=== PATIENT | male | born 1950 | race Caucasian/White ===

== ENCOUNTER 2019-09-30 15:21 | Emergency (ER) | payer MEDICARE, SELFPAY ==
[2019-09-30 15:35] VITALS: BP 150/73; PULSE 81; RESP 16; TEMP 36.6; O2SAT 98
--- NOTE | 2019-09-30 15:42 | ED.EAR ---
HPI - Ear Problem General Chief complaint: Ear Stated complaint: left ear pain/ringing Time Seen by Provider: 09/30/19 15:43 Source: patient and RN notes reviewed History of Present Illness HPI Narrative: Patient is a 68-year-old male presents the urgent care with complaints of left ear tinnitus, pain, burning. Patient states that the ringing started today but he has had the pain for approximately 4 to 5 days. Patient denies any drainage or fever. Patient states that he has been under a car and may have gotten some dust in the ear . Patient also reports to picking at the ear and using Q-tips. No other acute complaints. No acute distress noted. Patient had a plan of care. Related Data Home Medications Medication Instructions Recorded Confirmed aspirin 81 mg tablet,delayed 81 mg PO DAILY 07/24/19 09/30/19 release atorvastatin 80 mg tablet 80 mg PO DAILY 07/24/19 09/30/19 cyanocobalamin (vitamin B-12) 1,000 mcg SUBLINGUAL DAILY 07/24/19 09/30/19 1,000 mcg sublingual tablet diclofenac sodium 75 mg 75 mg PO BID PRN 07/24/19 09/30/19 tablet,delayed release enalapril maleate 2.5 mg tablet 2.5 mg PO DAILY 07/24/19 09/30/19 hydrochlorothiazide 25 mg tablet 25 mg PO DAILY 07/24/19 09/30/19 omeprazole 20 mg capsule,delayed 20 mg PO DAILY 07/24/19 09/30/19 release ticagrelor 90 mg tablet 90 mg PO BID tablet 07/24/19 09/30/19 Allergies Allergy/AdvReac Type Severity Reaction Status Date / Time No Known Allergies Allergy Verified 07/24/19 08:33 Review of Systems Review of Systems: Narrative: CONSTITUTIONAL: Denies fever, chills, or sweats. EYES: Denies visual changes, redness, or discharge. ENT: Reports of left otalgia with burning, itchiness, tinnitus CARDIOVASCULAR: Denies chest pain, palpitations, or edema. RESPIRATORY: Denies cough or dyspnea. GASTROINTESTINAL: Denies abdominal pain, nausea, vomiting, or diarrhea. GENITOURINARY: Denies dysuria or hematuria. SKIN: Denies rash or itching. MUSCULOSKELETAL: Denies back pain, joint pain, or myalgia. NEUROLOGIC: Denies headache, numbness, or weakness. All other systems reviewed are negative, except as documented in HPI. [facility] Past Medical History Medical History (Updated 09/30/19 @ 16:03 by BRIDGETT Kellogg) Back pain BPH (benign prostatic hyperplasia) Chronic GERD COPD (chronic obstructive pulmonary disease) Erectile dysfunction H/O carotid atherosclerosis Hyperlipidemia Hypertension Obesity SONAL (obstructive sleep apnea) Tinnitus Type 2 diabetes mellitus Family History Family History (Updated 03/13/18 @ 08:10 by DOCTOR UNKNOWN) Father Diabetes mellitus Hypertension Mother Diabetes mellitus Social History Social History Smoking status: Former smoker Smoking end date: 08/22/05 Alcohol intake: never Comments At the time of my signature, I reviewed and agree with the nursing past medical, surgical, social, and family history. There is no relevant family history pertinent to the patient complaint. Exam Narrative: Exam Narrative: GENERAL: This is a well-nourished, well-developed patient, in no apparent distress. HEAD: normocephalic, atraumatic. EYES: PERRL. Sclera clear/white. Vision is grossly intact. EARS: External ears normal, right auditory canals clear and without drainage, injected and erythemic left TM with mild canal irritation and notable particles. Right TMs normal without perforation. Hearing grossly intact. NOSE: External nose normal with no obvious nasal discharge THROAT: Mucous membranes moist NECK: Neck supple CARDIOVASCULAR: Regular rate and rhythm without murmurs, gallops, or rubs. RESPIRATORY: Clear to auscultation. Breath sounds equal bilaterally. No wheezes, rales, or rhonchi. SKIN: warm, intact with no suspicious lesions or rash, good texture and turgor. NEURO: awake, alert, and oriented to person, place and time. There were no obvious focal neurologic abnormalities. EXTREMITIES: No clubbing, cyanosis, or
== END 2019-09-30 16:08 | disposition home or self-care (01) ==
PROVIDERS: Emergency Provider Nurse Practitioner Family; PCP Internal Medicine
DX: H66.92 Otitis media, unspecified, left ear (principal); I10 Essential (primary) hypertension; E78.5 Hyperlipidemia, unspecified; E11.9 Type 2 diabetes mellitus without complications; Z87.891 Personal history of nicotine dependence
CPT/HCPCS: 99213; G0463

== ENCOUNTER 2020-03-15 14:18 | Emergency (ER) | payer MEDICARE, SELFPAY ==
[2020-03-15 14:34] VITALS: BP 160/65; PULSE 89; RESP 20; TEMP 36.9; O2SAT 100
--- NOTE | 2020-03-15 14:52 | PC.NURSE ---
RIGHT EYE EXAM PER DR SWIFT WITH [employer] LAMP
--- NOTE | 2020-03-15 15:21 | ED.EYEPROB ---
HPI - Eye Problem General Chief complaint: Eye Problems Stated complaint: FB in right eye Source: patient Mode of arrival: ambulatory Limitations: no limitations History of Present Illness HPI Narrative: The patient, who wears glasses, presents with right eye discomfort. Patient states he was working on a car yesterday wearing both eyeglasses and a protective plastic shield ; while grinding he felt foreign body sensation on his right eye that seemed to improve after irrigation/showering. He felt okay when he woke up but after an hour noticed recurrence of symptoms. No significant discharge, significant redness, photophobia, pupil change, epiphora and the FB sensation is right upper outer/temporal. Patient declines hospital referral for higher testing now , after advised there are more available tests[example scanning] there. Related Data Home Medications Medication Instructions Recorded Confirmed aspirin 81 mg tablet,delayed 81 mg PO DAILY 07/24/19 03/15/20 release atorvastatin 80 mg tablet 80 mg PO DAILY 07/24/19 03/15/20 cyanocobalamin (vitamin B-12) 1,000 mcg SUBLINGUAL DAILY 07/24/19 03/15/20 1,000 mcg sublingual tablet enalapril maleate 2.5 mg tablet 2.5 mg PO DAILY 07/24/19 03/15/20 hydrochlorothiazide 25 mg tablet 25 mg PO DAILY 07/24/19 03/15/20 omeprazole 20 mg capsule,delayed 20 mg PO DAILY 07/24/19 03/15/20 release ticagrelor 90 mg tablet 90 mg PO BID tablet 07/24/19 03/15/20 Allergies Allergy/AdvReac Type Severity Reaction Status Date / Time No Known Allergies Allergy Verified 07/24/19 08:33 Review of Systems Review of Systems: Narrative: General/Constitutional: No weight loss,fever Eyes: MILD Redness,discharge Ears/Nose/Throat: No: Epistaxis,ear discharge Respiratory: Denies: Hemoptysis Gastrointestinal: No Vomiting, Bleeding-rectal Skin: No Lumps, eruption Neurologic: No Focal Weakness,Sz Hematologic: Denies: Petechiae/Purpura Psychiatric: No: Suicida ideationl All Other Systems: Reviewed and Negative [facility] Past Medical History Medical History (Updated 03/16/20 @ 00:00 by Background Daemon) Back pain BPH (benign prostatic hyperplasia) Chronic GERD COPD (chronic obstructive pulmonary disease) Erectile dysfunction H/O carotid atherosclerosis Hyperlipidemia Hypertension Obesity SONAL (obstructive sleep apnea) Tinnitus Type 2 diabetes mellitus Family History Family History (Updated 03/13/18 @ 08:10 by DOCTOR UNKNOWN) Father Diabetes mellitus Hypertension Mother Diabetes mellitus Social History Social History Smoking status: Former smoker Smoking end date: 08/22/05 Alcohol intake: never Gender identity (if verbalized by the patient): Male Comments At time of signature, agree with nursing past medical, surgical, social and family history. There is no relevant family history pertinent to the presenting complaint Exam Narrative: Exam Narrative: General Appearance: Well appearing, Well nourished, No distress EYE: PERRLA without asymmetry,[id number] normal, EOMI ,lens normal,, Normal corneas no fluorescein uptake, no Sandra; ant chamber deep, Min Conjunctiva injection, small FB at 10:00 Ears: External ear normal, Auditory canal normal Nose: Normal nose, Nares clear Mouth/Throat: Normal appearing, Normal lips Neck: Supple, No adenopathy Respiratory: Airway patent, No respiratory distress Skin: Warm, Dry Neurological: A&O x3, CN II-X intact Psychiatric: Normal mood, Normal affect Course Course Emergency Course: Patient completely improved , after irrigation removal of foreign body Vital Signs Vital signs: Vital Signs Temperature 98.4 F 03/15/20 14:34 Pulse Rate 89 03/15/20 14:34 Respiratory Rate 20 03/15/20 14:34 Blood Pressure 160/65 H 03/15/20 14:34 Pulse Oximetry 100 03/15/20 14:34 Temperature 98.4 F 03/15/20 14:34 Pulse Rate 89 03/15/20 14:34 Respiratory Rate 20 03/15/20 14:34 Blood Pressure
== END 2020-03-15 15:00 | disposition home or self-care (01) ==
PROVIDERS: Emergency Provider Emergency Medicine; PCP Internal Medicine
DX: T15.01XA Foreign body in cornea, right eye, initial encounter (principal); X58.XXXA Exposure to other specified factors, initial encounter; Z87.891 Personal history of nicotine dependence; N40.0 Benign prostatic hyperplasia without lower urinary tract symptoms; J44.9 Chronic obstructive pulmonary disease, unspecified; E78.5 Hyperlipidemia, unspecified; I10 Essential (primary) hypertension; E11.9 Type 2 diabetes mellitus without complications; G47.33 Obstructive sleep apnea (adult) (pediatric)
CPT/HCPCS: 65220; 99213; G0463

== ENCOUNTER 2020-05-26 10:57 | Emergency (ER) | payer MEDICARE, SELFPAY ==
[2020-05-26 11:00] VITALS: BP 160/84; PULSE 94; RESP 24; TEMP 36.8; O2SAT 98
--- NOTE | 2020-05-26 11:11 | ED.BACK ---
HPI - Back Pain/Injury General Chief Complaint: Back Pain/Injury Stated Complaint: back pain Time Seen by Provider: 05/26/20 11:12 Source: patient Mode of arrival: ambulatory Limitations: no limitations History of Present Illness HPI Narrative: 69-year-old male. Presents to clinic today ambulatory with chief complaints of mid to lower back pain for 2 days. He states that he was buffing his vehicle at home prior to his back pain starting. He reports to have had a lot of bending and twisting . No acute falls or injury. He reports that the pain is worse when he bends or sits for prolonged periods. He states the pain is mildly relieved at home with some Flexeril but he has ran out. No loss of bowel bladder control. No abdominal pain, N/V. Maleurogen concern. Pain is described as sharp shooting. Radiates from mid back down lower back to thigh. He reports a history of chronic back pain. This pain is similar to pain that he has experienced before. MD elicited complaint: back pain Pertinent past history: arthritis Onset (ago): day(s) (2) Timing: intermittent Severity: moderate Pain scale (0-10): 7 Similar Symptoms Previously: Yes Quality: sharp and stabbing Location: lumbar spine and thoracic spine Radiation: buttocks Exacerbating factors: movement Relieving factors: medication (Home Flexeril mildly relieved. ) Context: turning/twisting and bending Associated symptoms: denies other symptoms Treatments prior to arrival: other medications (Flexeril ) Work related injury: No Related Data Home Medications Medication Instructions Recorded Confirmed aspirin 81 mg tablet,delayed 81 mg PO DAILY 07/24/19 05/26/20 release atorvastatin 80 mg tablet 80 mg PO DAILY 07/24/19 05/26/20 cyanocobalamin (vitamin B-12) 1,000 mcg SUBLINGUAL DAILY 07/24/19 05/26/20 1,000 mcg sublingual tablet enalapril maleate 2.5 mg tablet 2.5 mg PO DAILY 07/24/19 05/26/20 hydrochlorothiazide 25 mg tablet 25 mg PO DAILY 07/24/19 05/26/20 ticagrelor 90 mg tablet 90 mg PO BID tablet 07/24/19 05/26/20 [place] Calcium-Vitamin D3 05/26/20 Allergies Allergy/AdvReac Type Severity Reaction Status Date / Time No Known Allergies Allergy Verified 05/26/20 11:05 Review of Systems Review of Systems: Narrative: CONSTITUTIONAL: Denies fever, chills, sweats. EYES: Denies visual changes, redness, discharge. ENT: Denies rhinorrhea, congestion, sore throat, otalgia. CARDIOVASCULAR: Denies chest pain, palpitations, edema. RESPIRATORY: Denies dyspnea, wheezing, cough GASTROINTESTINAL: Denies abdominal pain, nausea, vomiting, diarrhea. GENITOURINARY: Denies dysuria, hematuria, abnormal discharge SKIN: Denies rash or itching. MUSCULOSKELETAL: Pain to mid-lower back, radiates down posterior back and buttock. NEUROLOGIC: Denies numbness, or focal weakness. PSYCHIATRIC: Denies anxiety or depression. All systems reviewed & are unremarkable except as noted in HPI and below PMFSH Past Medical History Medical History Back pain BPH (benign prostatic hyperplasia) Chronic GERD COPD (chronic obstructive pulmonary disease) Erectile dysfunction H/O carotid atherosclerosis Hyperlipidemia Hypertension Obesity SONAL (obstructive sleep apnea) Tinnitus Type 2 diabetes mellitus Family History Family History Father Diabetes mellitus Hypertension Mother Diabetes mellitus Social History Social History Smoking status: Former smoker Smoking end date: 08/22/05 Alcohol intake: never Gender identity (if verbalized by the patient): Male Exam Narrative: Exam Narrative: GENERAL: This is a well-nourished, well-developed patient, in no apparent distress. HEAD: normocephalic, atraumatic. EYES: PERRL. Sclera clear/white. Vision is grossly intact. EARS: External ears normal, auditory canals clear and without drainage, TMs normal without perforation.
[2020-05-26] MEDS: KETOROLAC 30 MG/ML VIAL (*BKC) IM (11:55)
== END 2020-05-26 12:05 | disposition home or self-care (01) ==
PROVIDERS: Emergency Provider Nurse Practitioner Adult Health; PCP Internal Medicine
DX: M62.830 Muscle spasm of back (principal); S39.012A Strain of muscle, fascia and tendon of lower back, initial encounter; X50.3XXA Overexertion from repetitive movements, initial encounter; N40.0 Benign prostatic hyperplasia without lower urinary tract symptoms; K21.9 Gastro-esophageal reflux disease without esophagitis; J44.9 Chronic obstructive pulmonary disease, unspecified; E78.5 Hyperlipidemia, unspecified; I10 Essential (primary) hypertension; G47.33 Obstructive sleep apnea (adult) (pediatric); E11.9 Type 2 diabetes mellitus without complications; Z87.891 Personal history of nicotine dependence; I65.29 Occlusion and stenosis of unspecified carotid artery; Z79.82 Long term (current) use of aspirin
CPT/HCPCS: 96372; 99213; G0463; J1885

== ENCOUNTER 2020-06-19 09:24 | Outpatient (CLI) | payer MEDICARE, SELFPAY ==
--- NOTE | ~2020-06-19 | XR_ITS ---
XR hip LT min 2V DATE: 06/19/2020 09:42 INDICATION: Left hip pain for 2 weeks. No injury. TECHNIQUE: AP, lateral, crosstable lateral views of left COMPARISON: None FINDINGS: No fracture or dislocation, avascular necrosis or bone destruction. Left hip joint space is well preserved. IMPRESSION: Negative Reviewed, dictated and finalized at location A. IMPRESSION: Negative
== END 2020-06-19 09:25 | disposition home or self-care (01) ==
PROVIDERS: PCP Internal Medicine; Visit Provider Clinical Nurse Specialist
DX: M25.559 Pain in unspecified hip (principal)
CPT/HCPCS: 73502

== ENCOUNTER 2020-07-30 08:17 | Outpatient (CLI) | payer MEDICARE, SELFPAY ==
[2020-07-30 08:37] LABS: Basophils Absolute Auto 0.1 K/mm3 (0.0-0.1); Basophils Percent Auto 0.8 % (0.2-1.2); Eosinophils Absolute Auto 0.3 K/mm3 (0-0.3); Eosinophils Percent Auto 3.5 % (0-4.4); Hematocrit 43.9 % (42.0-52.0); Immature Granulocyte Absolute 0.07 K/mm3 (0.00-0.031); Immature Granulocyte Percent A 0.9 % (0-0.5); Lymphocytes Absolute Auto 2.35 K/mm3 (0.9-3.2); Lymphocytes Percent Auto 29.6 % (18.3-44.2); Mean Corpuscular HGB Conc 31.9 g/dl (32-36); Mean Corpuscular Hemoglobin 27.4 pg (26-34); Mean Corpuscular Volume 85.9 fl (80-100); Mean Platelet Volume 9.8 fl (7.4-10.4); Monocytes Absolute Auto 0.7 K/mm3 (0.1-0.6); Monocytes Percent Auto 8.2 % (2.6-8.5); Neutrophils Absolute Auto 4.5 K/mm3 (1.3-6.7); Platelet Count Result 234 k/mm3 (150-375); Red Blood Count 5.11 M/mm3 (4.6-6.20); Red Cell Distribution Width 14.6 % (11.5-14.5)
[2020-07-30 08:51] LABS: Alanine Aminotransferase 41 U/L (4-50); Albumin Level 4.2 g/dL (3.5-5.1); Alkaline Phosphatase 68 U/L (38-126); Anion Gap 6 mmol/L (8-16); Aspartate Amino Transferase 30 U/L (17-59); Bilirubin,Total 0.6 mg/dL (0.2-1.3); Blood Urea Nitrogen 32 mg/dL (9-20); Calcium 9.3 mg/dL (8.4-10.2); Carbon Dioxide 32 mmol/L (22-30); Chloride 101 mmol/L (98-107); Cholesterol 145 mg/dL (0-200); Estimated Glomerular Filt Rate > 60; Glucose 122 mg/dL (75-110); HDL Direct 42 mg/dL; Hemoglobin A1C 6.1 % (<5.7); Potassium 4.9 mmol/L (3.4-5.0); Sodium 139 mmol/L (137-145); Triglycerides 118 mg/dL (<150)
[2020-07-30 09:02] LABS: LDL Cholesterol Direct 75 mg/dL
[2020-07-30 09:21] LABS: Prostate Specific Antigen 0.8 ng/mL (< OR = 4.0)
== END 2020-07-30 08:18 | disposition home or self-care (01) ==
PROVIDERS: PCP Internal Medicine; Visit Provider Nurse Practitioner
DX: Z12.5 Encounter for screening for malignant neoplasm of prostate (principal); E11.9 Type 2 diabetes mellitus without complications
CPT/HCPCS: 36415; 80053; 80061; 83036; 84153; 85025; G0103

== ENCOUNTER 2021-09-11 08:18 | Outpatient (CLI) | payer MEDICARE, SELFPAY ==
[2021-09-11 09:23] LABS: Basophils Percent Auto 0.4 % (0.2-1.2); Eosinophils Absolute Auto 0.2 K/mm3 (0-0.3); Eosinophils Percent Auto 2.4 % (0-4.4); Hemoglobin 12.6 g/dL (14.0-18.0); Immature Granulocyte Absolute 0.01 K/mm3 (0.00-0.031); Immature Granulocyte Percent A 0.1 % (0-0.5); Lymphocytes Absolute Auto 1.68 K/mm3 (0.9-3.2); Lymphocytes Percent Auto 23.5 % (18.3-44.2); Mean Corpuscular HGB Conc 30.7 g/dl (32-36); Mean Corpuscular Hemoglobin 26.8 pg (26-34); Mean Platelet Volume 10.3 fl (7.4-10.4); Monocytes Absolute Auto 0.6 K/mm3 (0.1-0.6); Monocytes Percent Auto 8.4 % (2.6-8.5); Neutrophils Absolute Auto 4.7 K/mm3 (1.3-6.7); Neutrophils Percent Auto 65.2 % (45.5-73.1); Platelet Count Result 221 k/mm3 (150-375); Red Blood Count 4.71 M/mm3 (4.6-6.20); Red Cell Distribution Width 14.6 % (11.5-14.5); White Blood Count 7.2 K/mm3 (4.5-10.0)
[2021-09-11 09:33] LABS: Alanine Aminotransferase 32 U/L (4-50); Albumin Level 4.3 g/dL (3.5-5.1); Alkaline Phosphatase 92 U/L (38-126); Anion Gap 8 mmol/L (8-16); Aspartate Amino Transferase 30 U/L (17-59); Bilirubin,Total 0.5 mg/dL (0.2-1.3); Blood Urea Nitrogen 22 mg/dL (9-20); Calcium 9.4 mg/dL (8.4-10.2); Carbon Dioxide 31 mmol/L (22-30); Chloride 99 mmol/L (98-107); Cholesterol 156 mg/dL (0-200); Estimated Glomerular Filt Rate > 60; Glucose 130 mg/dL (65-110); HDL Direct 43 mg/dL; Potassium 4.4 mmol/L (3.4-5.0); Sodium 138 mmol/L (137-145); Triglycerides 127 mg/dL (<150)
[2021-09-11 09:38] LABS: Hemoglobin A1C 6.4 % (<5.7)
[2021-09-11 09:44] LABS: LDL Cholesterol Direct 77 mg/dL
[2021-09-11 09:56] LABS: Creatinine Urine 166.8 mg/dL
[2021-09-11 10:00] LABS: MALB Creatinine Ratio 7.4 mg/g (0-30); Microalbumin Urine Random 12.4 mg/L (0-16.7)
== END 2021-09-11 08:19 | disposition home or self-care (01) ==
LOC: ANHLAB 08:19
PROVIDERS: PCP Internal Medicine; Visit Provider Nurse Practitioner
DX: I10 Essential (primary) hypertension (principal); E11.9 Type 2 diabetes mellitus without complications; E78.5 Hyperlipidemia, unspecified
CPT/HCPCS: 36415; 80053; 80061; 82043; 83036; 85025

== ENCOUNTER 2021-11-25 07:40 | Outpatient (CLI) | payer MEDICARE, SELFPAY ==
[2021-11-25 08:15] LABS: Basophils Absolute Auto 0.1 K/mm3 (0.0-0.1); Basophils Percent Auto 0.6 % (0.2-1.2); Eosinophils Absolute Auto 0.2 K/mm3 (0-0.3); Eosinophils Percent Auto 1.7 % (0-4.4); Hematocrit 43.6 % (42.0-52.0); Hemoglobin 13.1 g/dL (14.0-18.0); Immature Granulocyte Absolute 0.05 K/mm3 (0.00-0.031); Immature Granulocyte Percent A 0.6 % (0-0.5); Lymphocytes Absolute Auto 1.93 K/mm3 (0.9-3.2); Lymphocytes Percent Auto 22.1 % (18.3-44.2); Mean Corpuscular Hemoglobin 25.6 pg (26-34); Mean Corpuscular Volume 85.2 fl (80-100); Mean Platelet Volume 9.6 fl (7.4-10.4); Monocytes Absolute Auto 0.8 K/mm3 (0.1-0.6); Monocytes Percent Auto 8.9 % (2.6-8.5); Neutrophils Absolute Auto 5.8 K/mm3 (1.3-6.7); Neutrophils Percent Auto 66.1 % (45.5-73.1); Platelet Count Result 258 k/mm3 (150-375); Red Blood Count 5.12 M/mm3 (4.6-6.20); Red Cell Distribution Width 14.4 % (11.5-14.5); White Blood Count 8.7 K/mm3 (4.5-10.0)
[2021-11-25 08:46] LABS: Hemoglobin A1C 6.4 % (<5.7); Iron 53 ug/dL (49-181)
[2021-11-25 08:58] LABS: Percent Iron Saturation 15 % (20-50)
[2021-11-25 09:30] LABS: Folic Acid 5.5 ng/mL (2.76->20)
== END 2021-11-25 07:41 | disposition home or self-care (01) ==
LOC: ANHLAB 07:42
PROVIDERS: PCP Internal Medicine; Visit Provider Nurse Practitioner
DX: D64.9 Anemia, unspecified (principal); E11.9 Type 2 diabetes mellitus without complications
CPT/HCPCS: 36415; 82607; 82728; 82746; 83036; 83540; 83550; 85025

== ENCOUNTER 2021-12-28 11:45 | Emergency (ER) | payer MEDICARE, SELFPAY ==
--- NOTE | ~2021-12-28 | XR_ITS ---
EXAMINATION: XR chest 2V DATE: 12/28/2021 12:32 INDICATION: Cough and shortness of breath TECHNIQUE: PA and lateral views of the chest are obtained. COMPARISON: 09/12/2018 FINDINGS: The lungs are free of acute opacities. There is no pleural effusion or pneumothorax. The ca rdiomediastinal silhouette is normal. There is moderate thoracic spondylosis. IMPRESSION: 1. No acute cardiopulmonary abnormality. Reviewed, dictated and finalized at location A.
--- NOTE | 2021-12-28 11:48 | ED.URI ---
HPI - URI/Sore Throat General Chief Complaint: Upper Respiratory Infection Stated Complaint: shortness of breath, cough, chest pain Time Seen by Provider: 12/28/21 11:52 Source: patient and RN notes reviewed Mode of arrival: ambulatory Limitations: no limitations History of Present Illness HPI Narrative: 71-year-old male with history of diabetes presents with concern for cough, shortness of breath, chest pain with coughing. He reports symptoms started on Tuesday. He reports he was diagnosed with COPD many years ago, however he does not take medication for COPD. He denies smoking. He reports mild rhinorrhea and nasal congestion, denies chills, fever, sweats, body aches, nausea, vomiting, diarrhea. Reports he is taking Robitussin without relief. MD elicited complaint: cough Related Data Home Medications Medication Instructions Recorded Confirmed aspirin 81 mg tablet,delayed 81 mg PO DAILY 07/24/19 12/28/21 release cyanocobalamin (vitamin B-12) 1,000 mcg SUBLINGUAL DAILY 07/24/19 12/28/21 1,000 mcg sublingual tablet cholecalciferol (vitamin D3) 10 10 mcg PO DAILY 02/09/21 12/28/21 mcg (400 unit) capsule Allergies Allergy/AdvReac Type Severity Reaction Status Date / Time No Known Allergies Allergy Verified 12/28/21 11:54 Review of Systems Review of Systems: CONSTITUTIONAL: Reports malaise. Denies chills, sweats, or fever. EYES: Denies visual changes, redness, or discharge. ENT: Reports rhinorrhea, congestion. Denies sinus pain, otalgia and sore throat. CARDIOVASCULAR: Denies chest pain, palpitations, or edema. RESPIRATORY: Reports cough, dyspnea. GASTROINTESTINAL: Denies abdominal pain, nausea, vomiting, diarrhea SKIN: Denies rash or itching. MUSCULOSKELETAL: Denies myalgia. NEUROLOGIC: Denies headache. All systems reviewed & are unremarkable except as noted in HPI and below PMFSH Past Medical History Medical History (Updated 12/28/21 @ 12:46 by Rosa Barrios NP) Back pain BPH (benign prostatic hyperplasia) Chronic GERD COPD (chronic obstructive pulmonary disease) Erectile dysfunction H/O carotid atherosclerosis Hyperlipidemia Hypertension Obesity SONAL (obstructive sleep apnea) Tinnitus Type 2 diabetes mellitus Family History Family History Father Diabetes mellitus Hypertension Mother Diabetes mellitus Social History Social History Smoking status: Former smoker Smoking end date: 08/22/05 Alcohol intake: never Gender identity (if verbalized by the patient): Male Comments At time of signature, agree with nursing past medical, surgical, social and family history. There is no relevant family history pertinent to the presenting complaint Exam Narrative: GENERAL: Nontoxic appearing and in no acute distress. HEAD: Normocephalic EYES: PERRLA, conjunctivae clear ENT: Nares clear. Mucous membranes moist. TM pearly wiseman with dull light reflex bilaterally; no tragal tenderness. Oropharynx not erythematous without lesions. Tonsils not enlarged and without exudate, no drooling, no hoarseness, no trismus, uvula midline. NECK: Supple. No lymphadenopathy CHEST: Scattered rhonchi and scattered inspiratory and expiratory wheeze noted. Cough noted no acute respiratory distress, speaks in full sentences. HEART: Regular rate and rhythm. No murmur heard. SKIN: Warm, dry, no rash. NEURO: Alert and oriented x3. PSYCH: Normal mood and affect Course Course Emergency Course: Patient is aware of diagnosis, understands and agrees to treatment plan. Anticipatory guidance given. Patient agrees to follow-up as directed and is aware of reasons to seek care at the emergency department. Portions of this record may have been created with voice recognition software Level of Care: Express Care Visit Vital Signs Vital signs: Reviewed. MDM - URI/Sore Throat MDM Narrative Medical decis
[2021-12-28 11:54] VITALS: BP 149/63; PULSE 98; RESP 16; TEMP 36.7; O2SAT 95
[2021-12-28 11:56] VITALS: BP 149/63; PULSE 98; RESP 16; TEMP 36.7; O2SAT 95
[2021-12-28] MEDS: ALBUTEROL SULFATE NEB 2.5 MG/3 ML INH INHALATION (12:03)
[2021-12-28] MEDS: IPRATROPIUM BR 0.02% INH SOLN 0.5 MG/2.5 ML VIAL INHALATION (12:03)
== END 2021-12-28 12:52 | disposition home or self-care (01) ==
PROVIDERS: Emergency Provider Nurse Practitioner; PCP Internal Medicine
DX: J44.1 Chronic obstructive pulmonary disease with (acute) exacerbation (principal); J44.9 Chronic obstructive pulmonary disease, unspecified; E78.5 Hyperlipidemia, unspecified; I10 Essential (primary) hypertension; E11.9 Type 2 diabetes mellitus without complications; Z79.82 Long term (current) use of aspirin; Z87.891 Personal history of nicotine dependence
CPT/HCPCS: 71046; 94640; 99213; G0463

== ENCOUNTER 2022-01-11 11:40 | Outpatient (CLI) | payer MEDICARE, SELFPAY ==
--- NOTE | ~2022-01-11 | XR_ITS ---
EXAMINATION: XR chest 2V DATE: 01/11/2022 12:08 INDICATION: Chronic obstructive pulmonary disease with acute exacerbation. TECHNIQUE: Frontal and lateral views of the chest were obtained. COMPARISON: Chest 2 views 12/28/2021, CT abdomen and pelvis 04/22/2015 FINDINGS: The chest demonstrates clear lungs without pneumonia, pleural effusion, or pneumothorax. Th e heart size is normal. There is a prominent left paracardial fat pad. IMPRESSION: 1. No acute cardiopulmonary disease. Reviewed, dictated and finalized at location A.
== END 2022-01-11 11:41 | disposition home or self-care (01) ==
PROVIDERS: PCP Internal Medicine; Visit Provider Clinical Nurse Specialist
DX: J44.1 Chronic obstructive pulmonary disease with (acute) exacerbation (principal)
CPT/HCPCS: 71046

== ENCOUNTER 2022-01-15 07:18 | Outpatient (CLI) | payer MEDICARE, SELFPAY ==
--- NOTE | ~2022-01-15 | CT_ITS ---
EXAMINATION: CTA chest PE protocol DATE: 01/15/2022 07:56 INDICATION: Cough. Chronic obstructive pulmonary disease with acute exacerbation. TECHNIQUE: Computed tomography angiography (CTA) of the chest was performed with 200 mL Omnipaque-350 intravenous contrast timed to evaluate the pulmonary arteries. Coronal maximum intensity projection 3D-reconstructions were created by the technologist. Automated exposure control and iterative reconst ruction technique were employed. The dose-length product was 1815.93 mGy-cm. COMPARISON: CT abdomen and pelvis 04/22/2015 FINDINGS: There is mild emphysema. There is mild atelectasis bilaterally. There are centrilobular nod ules and tree-in-bud opacities in right upper lobe and basilar right lower lobe, consistent with pneu monia. A calcified left lung nodule and calcified left hilar lymph nodes are consistent with old gra nulomatous disease. No pleural effusion. There is a 13 mm nodule in left thyroid lobe, likely not cli nically significant. The heart size is normal. There are coronary artery calcifications. There is no pericardial effusion. There is no pulmonary embolus. There is mild thoracic spondylosis. IMPRESSION: 1. Mild pneumonia in right upper lobe and right lower lobe. 2. No pulmonary embolus. Sensitivity is mildly decreased by motion artifact. 3. Mild emphysema. Reviewed, dictated and finalized at location A.
[2022-01-15 07:57] LABS: Estimated Glomerular Filt Rate > 60
== END 2022-01-15 07:19 | disposition home or self-care (01) ==
PROVIDERS: PCP Internal Medicine; Visit Provider Clinical Nurse Specialist
DX: J44.1 Chronic obstructive pulmonary disease with (acute) exacerbation (principal); R05.9 Cough, unspecified; M47.814 Spondylosis without myelopathy or radiculopathy, thoracic region; I25.10 Atherosclerotic heart disease of native coronary artery without angina pectoris
CPT/HCPCS: 71275; Q9967

== ENCOUNTER 2022-01-19 16:44 | Outpatient (CLI) | payer MEDICARE, SELFPAY ==
--- NOTE | ~2022-01-19 | XR_ITS ---
XR chest 2V 01/19/2022 17:04 Indication: Pneumonia seen on CT Procedure: 2 view chest Comparison: CT dated 01/15/2022 Findings: Heart size normal. Lungs clear. Subtle pneumonia seen on CT examination not appreciated by plain film examination. There is lingular atelectasis/scarring. No pleural effusion or pneumothorax. Heart size normal. No acute osseous abnormality. Impression: 1: No acute cardiopulmonary disease. Reviewed, dictated and finalized at location A. Impression: 1: No acute cardiopulmonary disease.
== END 2022-01-19 16:45 | disposition home or self-care (01) ==
PROVIDERS: PCP Internal Medicine; Visit Provider Clinical Nurse Specialist
DX: J18.9 Pneumonia, unspecified organism (principal)
CPT/HCPCS: 71046

== ENCOUNTER 2022-02-04 07:29 | Outpatient (CLI) | payer MEDICARE, SELFPAY ==
--- NOTE | 2022-02-04 17:25 | WPDPFTINT ---
PFT Procedure Performed PFT Procedure Performed Spirometry with Pre/Post Bronchodilator Plethysmography (Lung Vol) Diffusing Cap (DLCO) Flow Vol Loop PFT Interpretation This is a pulmonary function test with pre and post-bronchodilator spirometry, plethysmography and diffusing capacity. The test was performed and results interpreted in accordance with the 2019 and 2005 ATS/ERS Task Force guidelines respectively using the Global Lung Function Initiative-2012 reference equations. Patient demonstrated good effort and cooperation. Reproducibility criteria were met. The quality of the pre bronchodilator spirometry maneuver was Grade A and post bronchodilator spirometry maneuver was Grade A. Findings: Spirometry: There is decreased maximal expiratory airflow at all lung volumes with a concave expiratory flow tracing. The pre bronchodilator FVC is 2.25 L, 61% predicted. The pre bronchodilator FEV1 is 1.35 L, 48% predicted. The FEV1: FVC ratio 60%. The post bronchodilator FVC is 2.07 L, representing an 8% decrease. The post bronchodilator FEV1 is 1.37 L, representing 1% increase. The post bronchodilator FEV1: FVC ratio 66%. Plethysmography: The total lung capacity is 6.75 L, 108% predicted. The functional residual capacity is 4.62 L, 141% predicted. The residual volume is 4.47 L, 198% predicted. Diffusion capacity: The diffusion capacity on adjusted for hemoglobin and carboxyhemoglobin is 16.6, 68% predicted. The diffusing capacity adjusted for alveolar volume is 5.98, 145% predicted. Impression: There is a severe obstructive abnormality without significant improvement after inhaling a single dose of albuterol. The increase in residual volume is consistent with air trapping from an obstructive abnormality. The diffusing capacity unadjusted for hemoglobin and carboxyhemoglobin is normal and is increased when adjusted for alveolar volume. There are no prior studies for comparison
== END 2022-02-04 07:30 | disposition home or self-care (01) ==
PROVIDERS: PCP Internal Medicine; Visit Provider Clinical Nurse Specialist
DX: R05.9 Cough, unspecified (principal); J44.1 Chronic obstructive pulmonary disease with (acute) exacerbation; R94.2 Abnormal results of pulmonary function studies
CPT/HCPCS: 94060; 94726; 94729

== ENCOUNTER 2022-03-10 07:02 | Outpatient (CLI) | payer MEDICARE, SELFPAY ==
[2022-03-10 08:33] LABS: Basophils Absolute Auto 0.1 K/mm3 (0.0-0.1); Basophils Percent Auto 0.6 % (0.2-1.2); Eosinophils Absolute Auto 0.2 K/mm3 (0-0.3); Eosinophils Percent Auto 2.3 % (0-4.4); Hematocrit 42.8 % (42.0-52.0); Hemoglobin 12.8 g/dL (14.0-18.0); Immature Granulocyte Absolute 0.04 K/mm3 (0.00-0.031); Immature Granulocyte Percent A 0.5 % (0-0.5); Lymphocytes Absolute Auto 1.65 K/mm3 (0.9-3.2); Lymphocytes Percent Auto 20.3 % (18.3-44.2); Mean Corpuscular HGB Conc 29.9 g/dl (32-36); Mean Corpuscular Hemoglobin 25.8 pg (26-34); Mean Corpuscular Volume 86.3 fl (80-100); Mean Platelet Volume 10.2 fl (7.4-10.4); Monocytes Absolute Auto 0.7 K/mm3 (0.1-0.6); Monocytes Percent Auto 8.6 % (2.6-8.5); Neutrophils Absolute Auto 5.5 K/mm3 (1.3-6.7); Neutrophils Percent Auto 67.7 % (45.5-73.1); Platelet Count Result 222 k/mm3 (150-375); Red Blood Count 4.96 M/mm3 (4.6-6.20); Red Cell Distribution Width 16.8 % (11.5-14.5); White Blood Count 8.1 K/mm3 (4.5-10.0)
[2022-03-10 08:55] LABS: Hemoglobin A1C 6.6 % (<5.7)
== END 2022-03-10 07:03 | disposition home or self-care (01) ==
LOC: ANHLAB 07:04
PROVIDERS: PCP Internal Medicine; Visit Provider Nurse Practitioner
DX: D64.9 Anemia, unspecified (principal); E11.9 Type 2 diabetes mellitus without complications
CPT/HCPCS: 36415; 83036; 85025

== ENCOUNTER 2022-09-10 07:27 | Outpatient (CLI) | payer MEDICARE, SELFPAY ==
[2022-09-10 08:04] LABS: Basophils Absolute Auto 0.1 K/mm3 (0.0-0.1); Basophils Percent Auto 0.8 % (0.2-1.2); Eosinophils Absolute Auto 0.2 K/mm3 (0-0.3); Eosinophils Percent Auto 2.8 % (0-4.4); Hematocrit 44.3 % (42.0-52.0); Hemoglobin 13.7 g/dL (14.0-18.0); Immature Granulocyte Absolute 0.04 K/mm3 (0.00-0.031); Immature Granulocyte Percent A 0.5 % (0-0.5); Lymphocytes Absolute Auto 1.52 K/mm3 (0.9-3.2); Mean Corpuscular HGB Conc 30.9 g/dl (32-36); Mean Corpuscular Hemoglobin 26.6 pg (26-34); Mean Platelet Volume 9.8 fl (7.4-10.4); Monocytes Absolute Auto 0.8 K/mm3 (0.1-0.6); Monocytes Percent Auto 9.4 % (2.6-8.5); Neutrophils Absolute Auto 5.4 K/mm3 (1.3-6.7); Neutrophils Percent Auto 67.5 % (45.5-73.1); Platelet Count Result 204 k/mm3 (150-375); Red Blood Count 5.15 M/mm3 (4.6-6.20); Red Cell Distribution Width 15.3 % (11.5-14.5)
[2022-09-10 09:57] LABS: Alanine Aminotransferase 33 U/L (6-50); Albumin Level 3.8 g/dL (3.5-5.1); Alkaline Phosphatase 82 U/L (38-126); Anion Gap 6 mmol/L (8-16); Aspartate Amino Transferase 26 U/L (17-59); Bilirubin,Total 0.5 mg/dL (0.2-1.3); Blood Urea Nitrogen 25 mg/dL (9-20); Calcium 8.7 mg/dL (8.4-10.2); Carbon Dioxide 31 mmol/L (22-30); Chloride 102 mmol/L (98-107); Cholesterol 127 mg/dL (0-200); Estimated Glomerular Filt Rate > 60; Glucose 122 mg/dL (65-110); HDL Direct 40 mg/dL; Potassium 4.4 mmol/L (3.4-5.0); Sodium 139 mmol/L (137-145); Triglycerides 84 mg/dL (<150)
[2022-09-10 09:58] LABS: Iron 72 ug/dL (49-181)
[2022-09-10 10:07] LABS: LDL Cholesterol Direct 59 mg/dL
[2022-09-10 10:12] LABS: Percent Iron Saturation 21 % (20-50)
[2022-09-10 10:23] LABS: Hemoglobin A1C 6.6 % (<5.7)
== END 2022-09-10 07:28 | disposition home or self-care (01) ==
LOC: ANHLAB 07:28
PROVIDERS: PCP Internal Medicine; Visit Provider Nurse Practitioner
DX: Z12.5 Encounter for screening for malignant neoplasm of prostate (principal); E11.9 Type 2 diabetes mellitus without complications; D64.9 Anemia, unspecified
CPT/HCPCS: 36415; 80053; 80061; 82728; 83036; 83540; 83550; 84153; 85025; G0103

== ENCOUNTER 2023-01-18 08:43 | Emergency (ER) | payer MEDICARE, SELFPAY ==
[2023-01-18] VITALS (10 sets, daily range): BP systolic 99–127; BP diastolic 51–78; PULSE 71–102; RESP 18–27; TEMP 36.5; O2SAT 90–100
--- NOTE | ~2023-01-18 | XR_ITS ---
EXAMINATION: XR chest 2V DATE: 01/18/2023 09:10 INDICATION: Shortness of breath. Cough. TECHNIQUE: Frontal and lateral views of the chest were obtained. COMPARISON: Chest 2 views 01/19/2022 FINDINGS: There is no pneumonia, pleural effusion, or pneumothorax. The heart size is normal. There i s a prominent left paracardial fat pad. IMPRESSION: 1. No acute cardiopulmonary disease. Reviewed, dictated and finalized at location L.
--- NOTE | 2023-01-18 08:46 | ECG_ITS ---
Measurements Intervals [place] Rate: 79 P: 59 [place]: 144 QRS: -25 QRSD: 101 T: 31 QT: 366 QTc: 420 Interpretive Statements SINUS RHYTHM INCOMPLETE RIGHT BUNDLE BRANCH BLOCK DELAYED PRECORDIAL R/S TRANSITION LOW QRS VOLTAGE IN PRECORDIAL LEADS BORDERLINE ECG NO PREVIOUS ECG AVAILABLE FOR COMPARISON Electronically Signed On 01-18-2023 9:21:43 CDT by Jim Menendez D.O.
[2023-01-18 09:15] LABS: Basophils Absolute Auto 0.1 K/mm3 (0.0-0.1); Basophils Percent Auto 0.4 % (0.2-1.2); Eosinophils Absolute Auto 0.2 K/mm3 (0-0.3); Eosinophils Percent Auto 1.9 % (0-4.4); Hematocrit 44.8 % (42.0-52.0); Hemoglobin 13.9 g/dL (14.0-18.0); Immature Granulocyte Percent A 0.9 % (0-0.5); Lymphocytes Absolute Auto 2.47 K/mm3 (0.9-3.2); Lymphocytes Percent Auto 21.1 % (18.3-44.2); Mean Corpuscular Hemoglobin 26.3 pg (26-34); Mean Corpuscular Volume 84.7 fl (80-100); Mean Platelet Volume 10.1 fl (7.4-10.4); Monocytes Absolute Auto 1.1 K/mm3 (0.1-0.6); Monocytes Percent Auto 9.2 % (2.6-8.5); Neutrophils Absolute Auto 7.8 K/mm3 (1.3-6.7); Neutrophils Percent Auto 66.5 % (45.5-73.1); Platelet Count Result 216 k/mm3 (150-375); Red Blood Count 5.29 M/mm3 (4.6-6.20); Red Cell Distribution Width 15.4 % (11.5-14.5); White Blood Count 11.7 K/mm3 (4.5-10.0)
[2023-01-18 09:16] LABS: Alanine Aminotransferase 41 U/L (6-50); Albumin Level 4.5 g/dL (3.5-5.1); Alkaline Phosphatase 82 U/L (38-126); Anion Gap 8 mmol/L (8-16); Aspartate Amino Transferase 30 U/L (17-59); Bilirubin,Total 0.5 mg/dL (0.2-1.3); Blood Urea Nitrogen 33 mg/dL (9-20); Calcium 8.6 mg/dL (8.4-10.2); Carbon Dioxide 31 mmol/L (22-30); Chloride 98 mmol/L (98-107); Estimated CRCL calculation 58 ml/min; Estimated Glomerular Filt Rate 60; Glucose 87 mg/dL (65-110); Potassium 4.3 mmol/L (3.4-5.0); Sodium 137 mmol/L (137-145)
[2023-01-18] MEDS: methylPREDNISolone SOD SUCC 125 MG VIAL IV PUSH (09:42)
[2023-01-18] MEDS: IPRATROPIUM BR 0.02% INH SOLN 0.5 MG/2.5 ML VIAL 1 MG INHALATION (09:50)
[2023-01-18] MEDS: ALBUTEROL SULFATE NEB 2.5 MG/3 ML INH 10 MG INHALATION (09:50)
[2023-01-18 09:54] LABS: Base Excess ABG 0.9 mEq/l (+/-2.0); Carboxyhemoglobin 1.2 % THb (0-2.0); Fractional Inspired Oxygen 21 %; HCO3 ABG 25.9 mEq/l (22.0-26.0); Oxygen Content ABG 18.3 %vol (16.0-22.0); PCO2 ABG 42.5 mmHg (35.0-45.0); PO2 ABG 69.8 mmHg (80.0-100.0); PO2 FiO2 Ratio Arterial Blood 3.32 %; Reduced Hemoglobin 6.8 %THb (0-5.0); Total Hemoglobin 14.1 g/dL (12.0-18.0); pH ABG 7.402 (7.350-7.450)
[2023-01-18 09:55] LABS: Modified Allen's Test Pass; Site Drawn RIGHT RADIAL
[2023-01-18 10:28] LABS: Influenza A QL RT-PCR Negative (Negative); Influenza B QL RT-PCR Negative (Negative); SARS-CoV-2 RNA PCR Positive (Negative)
[2023-01-18 10:30] LABS: Lactic Acid Reflex 1.1 mmol/L (0.7-2.0)
[2023-01-18] MEDS: IPRATROPIUM BR 0.02% INH SOLN 0.5 MG/2.5 ML VIAL INHALATION (12:00)
[2023-01-18] MEDS: ALBUTEROL SULFATE NEB 2.5 MG/3 ML INH INHALATION (12:00)
--- NOTE | 2023-01-18 12:17 | ED.SOB ---
HPI - SOB/Dyspnea General Chief Complaint: Shortness of Breath/Dyspnea Stated Complaint: SOB, CP, COUGH Time Seen by Provider: 01/18/23 08:57 Source: patient and RN notes reviewed Mode of arrival: ambulatory Limitations: no limitations History of Present Illness HPI Narrative: This is a 72 year old male with history of COPD who presents for evaluation of cough and shortness of breath. He states he has had cough for 2 weeks. He is also having shortness of breath and wheezing. HE reports right side chest pain but denies any pain currently. He was seen by PCP last week and he was prescribed steroids, nebulizer and antibiotics. He states his symptoms have not improved. Related Data Home Medications Medication Instructions Recorded Confirmed aspirin 81 mg tablet,delayed 81 mg PO DAILY 07/24/19 01/10/23 release (Adult Low Dose Aspirin) clopidogrel 75 mg tablet 75 mg PO DAILY 03/18/22 01/10/23 cholecalciferol (vitamin D3) 25 25 mcg PO DAILY 09/16/22 01/10/23 mcg (1,000 unit) capsule mecobalamin (vitamin B12) 5,000 5,000 mcg PO DAILY 09/16/22 01/10/23 mcg disintegrating tablet pantoprazole 20 mg tablet,delayed 20 mg PO DAILY 09/16/22 01/10/23 release enalapril maleate 5 mg tablet 10 mg PO BID 11/22/22 01/10/23 Allergies Allergy/AdvReac Type Severity Reaction Status Date / Time No Known Allergies Allergy Verified 01/18/23 08:55 Review of Systems Constitutional: Constitutional: Denies fever(s) and Denies weakness ENT: Reports nasal congestion Cardiovascular: Cardiovascular: Denies syncope, Denies rapid heart rate, Denies irregular heart rhythm, Denies leg edema and Denies dyspnea Respiratory: Respiratory: Reports chest congestion, Reports cough, Denies hemoptysis, Denies excessive phlegm production, Reports dyspnea and Reports wheezing Gastrointestinal: Gastrointestinal: Denies abdominal pain, Denies hematochezia, Denies diarrhea and Denies vomiting Genitourinary: Genitourinary: Denies hematuria, Denies dysuria, Denies penile discharge and Denies testicular pain Musculoskeletal: Musculoskeletal: Denies joint swelling, Denies loss of height and Denies muscle weakness Neurologic: Denies syncope, Denies focal weakness and Denies weakness PMFSH Past Medical History Medical History Back pain BPH (benign prostatic hyperplasia) CAD (coronary artery disease) Chronic GERD COPD (chronic obstructive pulmonary disease) Cough Erectile dysfunction H/O carotid atherosclerosis History of ST elevation myocardial infarction (STEMI) Hyperlipidemia Hypertension Obesity Tinnitus Type 2 diabetes mellitus Family History Family History Father Diabetes mellitus Hypertension Mother Diabetes mellitus Social History Social History Smoking packs per day: 2 Smoking cigarettes per day: 40.0 Years smoked: 25 Smoking pack-years: 50.00 Smoking status: Former smoker Tobacco type: cigarettes Second hand tobacco smoke exposure: Yes Smoking end date: 08/22/92 Alcohol intake: never Lack of Transportation: No Lack of Food: Never True Current Housing: I Have Housing Concerned About Future Housing: No Difficulty Paying Gas/Electric Bills: No Difficulty Paying for Meds: No Currently Unemployed: No Education: High School Diploma/GED Difficulty w/ Childcare or Family Care: No Gender identity (if verbalized by the patient): Male Exam Const: General: alert Nutritional Appearance: obese Orientation/consciousness: patient oriented x3 Limitations: no limitations Eyes: EOM: EOMs intact bilaterally Neck: Neck: normal visual inspection Chest: Chest palpation & inspection: normal inspection of the chest Resp: Effort & Inspection: normal respiratory effort Auscultation: wheezes expiratory wheezes and throughout Other: abl
== END 2023-01-18 12:52 | disposition home or self-care (01) ==
PROVIDERS: Emergency Provider General Practice; PCP Internal Medicine
DX: U07.1 COVID-19 (principal); J44.1 Chronic obstructive pulmonary disease with (acute) exacerbation; I25.10 Atherosclerotic heart disease of native coronary artery without angina pectoris; I25.2 Old myocardial infarction; I10 Essential (primary) hypertension; E78.5 Hyperlipidemia, unspecified; E11.9 Type 2 diabetes mellitus without complications; N40.0 Benign prostatic hyperplasia without lower urinary tract symptoms; K21.9 Gastro-esophageal reflux disease without esophagitis; E66.9 Obesity, unspecified; Z68.38 Body mass index [BMI] 38.0-38.9, adult; Z79.82 Long term (current) use of aspirin; Z87.891 Personal history of nicotine dependence; I45.10 Unspecified right bundle-branch block
CPT/HCPCS: 36415; 36600; 71046; 80053; 82375; 82805; 83050; 83605; 85025; 87636; 93005; 94640; 96374; 99284; J2930

== ENCOUNTER → 2023-02-01 09:15 | Outpatient (CLI) | payer MEDICARE, SELFPAY ==
--- NOTE | ~2023-02-01 | XR_ITS ---
EXAMINATION: XR chest 2V 02/01/2023 09:27 INDICATION: Shortness of breath and cough PROCEDURE: 2 view chest COMPARISON: Comparison to multiple prior studies sequentially, with oldest reviewed study dated 04/2022. FINDINGS: The lungs are clear. The cardiomediastinal silhouette is within normal limits. There are no pleural effusions. There is no pneumothorax suspected. IMPRESSION: 1: NO ACUTE CARDIOPULMONARY DISEASE. Reviewed, dictated and finalized at location L.
== END ==
PROVIDERS: PCP Internal Medicine; Visit Provider Nurse Practitioner
DX: R06.02 Shortness of breath (principal); R05.9 Cough, unspecified
CPT/HCPCS: 71046

== ENCOUNTER 2023-02-23 07:58 | Outpatient (CLI) | payer MEDICARE, SELFPAY ==
--- NOTE | 2023-02-23 12:49 | WPDSIXMINUTE ---
Six Minute Walk Procedure Procedure Performed Pulmonary Stress Test (6 min walk) Six Minute Walk Six Minute Walk: This is a 6 minute walk test. The test was performed and interpreted in accordance with the 2014 ERS/ATS task force guidelines. Findings: The patient's resting room air oxygen saturation measured by pulse oximetry was 93% and heart rate was 71 bpm. Patient ambulated for 274 meters and oxygen saturation remained 95 to 98%. Heart rate at the end of the study was 87 bpm. The patient did not qualify for supplemental oxygen at rest or with ambulation. There are no prior studies for comparison.
== END 2023-02-23 07:59 | disposition home or self-care (01) ==
PROVIDERS: PCP Internal Medicine; Visit Provider Nurse Practitioner
DX: R06.02 Shortness of breath (principal); U09.9 Post COVID-19 condition, unspecified
CPT/HCPCS: 94618

== ENCOUNTER 2023-03-10 07:07 | Outpatient (CLI) | payer MEDICARE, SELFPAY ==
[2023-03-10 08:29] LABS: Hemoglobin A1C 6.7 % (<5.7)
== END 2023-03-10 07:08 | disposition home or self-care (01) ==
LOC: ANHLAB 07:08
PROVIDERS: PCP Internal Medicine; Visit Provider Nurse Practitioner
DX: E11.9 Type 2 diabetes mellitus without complications (principal)
CPT/HCPCS: 36415; 83036

== ENCOUNTER 2023-09-14 07:29 | Outpatient (CLI) | payer MEDICARE, SELFPAY ==
[2023-09-14 08:13] LABS: Basophils Percent Auto 0.5 % (0.2-1.2); Eosinophils Absolute Auto 0.2 K/mm3 (0-0.3); Eosinophils Percent Auto 2.6 % (0-4.4); Hematocrit 44.5 % (42.0-52.0); Hemoglobin 13.6 g/dL (14.0-18.0); Immature Granulocyte Absolute 0.03 K/mm3 (0.00-0.031); Immature Granulocyte Percent A 0.4 % (0-0.5); Lymphocytes Absolute Auto 1.77 K/mm3 (0.9-3.2); Lymphocytes Percent Auto 21.6 % (18.3-44.2); Mean Corpuscular HGB Conc 30.6 g/dl (32-36); Mean Corpuscular Hemoglobin 26.2 pg (26-34); Mean Corpuscular Volume 85.7 fl (80-100); Mean Platelet Volume 10.5 fl (7.4-10.4); Monocytes Absolute Auto 0.7 K/mm3 (0.1-0.6); Neutrophils Absolute Auto 5.4 K/mm3 (1.3-6.7); Neutrophils Percent Auto 65.9 % (45.5-73.1); Platelet Count Result 200 k/mm3 (150-375); Red Blood Count 5.19 M/mm3 (4.6-6.20); Red Cell Distribution Width 15.1 % (11.5-14.5); White Blood Count 8.2 K/mm3 (4.5-10.0)
[2023-09-14 08:25] LABS: Alanine Aminotransferase 37 U/L (6-50); Albumin Level 3.9 g/dL (3.5-5.1); Alkaline Phosphatase 81 U/L (38-126); Anion Gap 6 mmol/L (8-16); Aspartate Amino Transferase 29 U/L (17-59); Bilirubin,Total 0.6 mg/dL (0.2-1.3); Blood Urea Nitrogen 26 mg/dL (9-20); Carbon Dioxide 31 mmol/L (22-30); Chloride 100 mmol/L (98-107); Cholesterol 138 mg/dL (0-200); Estimated Glomerular Filt Rate > 60; Glucose 117 mg/dL (65-110); HDL Direct 39 mg/dL; Potassium 4.5 mmol/L (3.4-5.0); Sodium 137 mmol/L (137-145); Triglycerides 91 mg/dL (<150)
[2023-09-14 08:36] LABS: LDL Cholesterol Direct 77 mg/dL
[2023-09-14 08:54] LABS: Prostate Specific Antigen 0.7 ng/mL (< OR = 4.0)
[2023-09-14 09:03] LABS: Creatinine Urine 141.6 mg/dL
[2023-09-14 09:08] LABS: MALB Creatinine Ratio 5.9 mg/g (0-30); Microalbumin Urine Random 8.4 mg/L (0-16.7)
== END 2023-09-14 07:30 | disposition home or self-care (01) ==
LOC: ANHLAB 07:31
PROVIDERS: PCP Internal Medicine; Visit Provider Nurse Practitioner
DX: Z12.5 Encounter for screening for malignant neoplasm of prostate (principal); I10 Essential (primary) hypertension; E11.9 Type 2 diabetes mellitus without complications
CPT/HCPCS: 36415; 80053; 80061; 82043; 83036; 84153; 85025; G0103

== ENCOUNTER 2024-02-21 07:55 | Outpatient (CLI) | payer MEDICARE, SELFPAY ==
[2024-02-21 13:21] LABS: Basophils Absolute Auto 0.1 K/mm3 (0.0-0.1); Basophils Percent Auto 0.6 % (0.2-1.2); Eosinophils Absolute Auto 0.2 K/mm3 (0-0.3); Eosinophils Percent Auto 1.6 % (0-4.4); Hematocrit 45.5 % (42.0-52.0); Immature Granulocyte Absolute 0.06 K/mm3 (0.00-0.031); Immature Granulocyte Percent A 0.6 % (0-0.5); Lymphocytes Percent Auto 18.3 % (18.3-44.2); Mean Corpuscular HGB Conc 30.8 g/dl (32-36); Mean Corpuscular Hemoglobin 26.7 pg (26-34); Mean Corpuscular Volume 86.7 fl (80-100); Mean Platelet Volume 10.8 fl (7.4-10.4); Monocytes Absolute Auto 0.8 K/mm3 (0.1-0.6); Monocytes Percent Auto 7.6 % (2.6-8.5); Neutrophils Percent Auto 71.3 % (45.5-73.1); Platelet Count Result 212 k/mm3 (150-375); Red Blood Count 5.25 M/mm3 (4.6-6.20); Red Cell Distribution Width 15.6 % (11.5-14.5); White Blood Count 9.9 K/mm3 (4.5-10.0)
[2024-02-21 13:45] LABS: Creatinine Urine 35.8 mg/dL
[2024-02-21 13:51] LABS: MALB Creatinine Ratio < 16.8 mg/g (0-30); Microalbumin Urine Random < 6.0 mg/L (0-16.7)
[2024-02-21 14:07] LABS: Alanine Aminotransferase 43 U/L (6-50); Albumin Level 4.5 g/dL (3.5-5.1); Alkaline Phosphatase 93 U/L (38-126); Anion Gap 7 mmol/L (4-12); Aspartate Amino Transferase 66 U/L (17-59); Bilirubin,Total 0.5 mg/dL (0.2-1.3); Blood Urea Nitrogen 42 mg/dL (9-20); Calcium 9.1 mg/dL (8.4-10.2); Carbon Dioxide 31 mmol/L (22-30); Chloride 101 mmol/L (98-107); Estimated Glomerular Filt Rate 43; Glucose 90 mg/dL (65-110); Potassium 4.8 mmol/L (3.4-5.0); Sodium 139 mmol/L (137-145)
[2024-02-21 15:03] LABS: Hemoglobin A1C 6.6 % (<5.7)
== END 2024-02-21 07:56 | disposition home or self-care (01) ==
LOC: ANHGOSHLAB 07:57
PROVIDERS: PCP Nurse Practitioner; Visit Provider Nurse Practitioner
DX: E11.9 Type 2 diabetes mellitus without complications (principal); E78.5 Hyperlipidemia, unspecified; J44.9 Chronic obstructive pulmonary disease, unspecified; I25.10 Atherosclerotic heart disease of native coronary artery without angina pectoris
CPT/HCPCS: 36415; 80053; 82043; 83036; 85025

== ENCOUNTER 2024-09-17 08:37 | Outpatient (CLI) | payer MEDICARE, SELFPAY ==
--- OUTSIDE RECORDS SUMMARY | 2024-09-17 08:57 | XMS_ITS | CONTINUITY OF CARE DOCUMENT ---
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 rheumatoid active Terri mead MD Carotid artery stenosis - bilateral active Terri Maher MD Carotid artery stenosis - left active Nikky Maher MD Carotid artery stenosis - right active Juarez Maher MD Mitral regurgitation active Terri garcia MD Bradycardia - sinus active Terri Maher MD Urinary disorder active Terri Maher MD Snoring active Terri Maher MD AMI inferior wall active Terri Maher M D Hypercholesterolemia active Terri garcia MD Hx of NSTEMI active Terri Maher MD HTN essential active Terri Maher MD Cardiology examination completed 5 - Yani Oliveira NP Family History of Hypertension: completed - Brandi Oliveira NP ENCOUNTERS Date Type Provider Location Encounter Diag nosis - In-person encounter Office Visit Terri Maher MD [facility] - In-person encounter Office Visit Terri Maher MD [facility] - In-person encounter Office Visit Terri Maher MD [facility] - In-person encounter Office Visit Terri Maher MD [facility] - In-person encounter Office Visit Terri Maher MD [facility] - In-person encounter Office Visit Terri Maher MD [facility] Shortness of breathPersonal history of COVID-19 - In-person encounter Office Visit Terri Maher MD [facility] - In-person encounter Office Visit Terri Maher MD [facility] - In-person encounter Office Visit Terri Maher MD [facility] - In-person encounter Office Visit Terri Maher MD [facility] SARS-associated coronavirus vaccinated moderna - In-person encounter Office Visit Terri Maher MD [facility] - In-person encounter Office Visit Terri Maher MD [facility] - In-person encounter Office Visit Terri Maher MD [facility] - In-person encounter Office Visit Terri Maher MD [facility] Dizziness - In-person encounter Office Visit Terri Maher MD [facility] - In-person encounter Office Visit Terri Maher MD [facility] Arthritis ? rheumatoid - In-person encounter Office Visit Mj Medina MD [facility] - In-person encounter Office Visit Mj Medina MD [facility] Family History of Hypertension:Cardiology examination - In-person encounter Office Visit Terri Maher MD [facility] - In-person encounter Office Visit Terri Maher MD [facility] Bradycardia - sinusMitral regurgitationCarotid artery stenosis - rightCarotid artery stenosis - leftCarotid artery stenosis - bilateral - In-person encounter Office Visit Terri Maher MD [facility] HTN essentialHx of NSTEMIHypercholesterolemiaAMI inferior wallSnoringUrinary disorder VITAL SIGNS Date Observation Value Provider Body Mass Index (Ratio) 38.41 kg/m2 Jhon Vitale blood pressure, diastolic 73 mm[Hg] Charito Trinidad blood pressure, systolic 142 mm[Hg] Charitomateusz faraalessandro Trinidad oxygen saturation, oximetry 96 % Nidhi Trinidad pulse rate 51 /min Nidhi Trinidad respiratory rate E&M 12 /min Nidhi Trinidad weight E&M 238 [lb_av] Nidhi Trinidad height E&M 66 [in_i] Nidhi Trinidad blood pressure, cuff size regular Charito childafraalessandro Trinidad Body Mass Index (Ratio) 39.38 kg/m2 Juarez Maher MD blood pressure, diastolic -1 mm[Hg] Hollie nkLogic blood pressure, systolic 146 mm[Hg] Angelita kLogic blood pressure, diastolic 75 mm[Hg] Ja rret blood pressure, systolic 146 mm[Hg] Jar ret pulse rate 59 /min Chandler blood pressure, cuff size regular Ja rr oxygen saturation, oximetry 96 % respiratory rate E&M 14 /min Chandler weight E&M 244 [lb_av] Chandler height E&M 66 [in_i] Chandler y Body Mass Index (Ratio) 39.86 kg/m2 Juarez Maher MD blood pressure, diastolic 76 mm[Hg] Hollie tafoyaLogfernando blood pressure, systolic 136 mm[Hg] Angelita [facility] pulse rate 72 /min [facility] blood pressure, cuff size regular [facility] blood pressure, diastolic 76 mm[Hg] [facility] blood pressure, systolic 136 mm[Hg] [facility], oximetry 93 % [facility] respiratory rate E&M 18 /min [facility] weight E&M 247 [lb_av] [facility] height E&M 66 [in_i] [facility] Body Mass Index (Ratio) 39.70 kg/m2 Juarez Maher MD blood pressure, diastolic -1 mm[Hg] Hollie nkLogfernando blood pressure, systolic 161 mm[Hg] Angelita Florenceogfernando blood pressure, diastolic 83 mm[Hg] Sh katharina Greer blood pressure, systolic 161 mm[Hg] She mauro Butterfield pulse rate 66 /min Yani Butterfield oxygen saturation, oximetry 96 % Yani Butterfield respiratory rate E&M 20 /min Yani Butterfield weight E&M 246 [lb_av] Yani Butterfield blood pressure, cuff size regular katharina Butterfield height E&M 66 [in_i] Yani Butterfield Body Mass Index (Ratio) 39.38 kg/m2 Juarez Maher MD blood pressure, diastolic 75 mm[Hg] Li lottieLogfernando blood pressure, systolic 134 mm[Hg] Angelita Florenceogfernando blood pressure, diastolic 75 mm[Hg] Hollie tafoyaLogfernando blood pressure, systolic 134 mm[Hg] Angelita Florenceogfernando weight E&M 244 [lb_av] Yani Butterfield blood pressure, diastolic 75 mm[Hg] katharina Butterfield blood pressure, systolic 134 mm[Hg] She rrjuan Butterfield blood pressure, cuff size regular katharina Butterfield height E&M 66 [in_i] Yani Butterfield pulse rate 75 /min Yani Butterfield respiratory rate E&M 18 /min Yani Butterfield oxygen saturation, oximetry 95 % Yani Butterfield Body Mass Index (Ratio) 39.54 kg/m2 Juarez Maher MD blood pressure, diastolic 71 mm[Hg] Li lottieLogic blood pressure, systolic 123 mm[Hg] Angelita Florenceogfernando blood pressure, diastolic 71 mm[Hg] Hollie tafoyaLogfernando blood pressure, systolic 123 mm[Hg] Angelita Florenceogfernando oxygen saturation, oximetry 94 % Yani Butterfield blood pressure, diastolic 71 mm[Hg] katharina Butterfield blood pressure, systolic 123 mm[Hg] She rrjuan Butterfield respiratory rate E&M 18 /min Yani Butterfield pulse rate 80 /min Yani Butterfield weight E&M 245 [lb_av] Yani Butterfield blood pressure, cuff size regular Sh katharina Butterfield height E&M 66 [in_i] Yani Greer Body Mass Index (Ratio) 40.12 kg/m2 Juarez Maher MD blood pressure, diastolic 84 mm[Hg] St ashwin [facility] blood pressure, systolic 145 mm[Hg] Sta дмитрий Cochran oxygen saturation, oximetry 94 % Vitaдмитрий Cochran pulse rate 72 /min Vitaдмитрий Cochran respiratory rate E&M 18 /min Vita moise weight E&M 248.6 [lb_av] Vita Cochran height E&M 66 [in_i] Vita Cochran Body Mass Index (Ratio) 39.54 kg/m2 Juarez Maher MD blood pressure, cuff size large Ke rri Rajendraueneharpreet blood pressure, diastolic 68 mm[Hg] Ke rri Rajendrauenenflisa blood pressure, systolic 124 mm[Hg] Yolis Berry oxygen saturation, oximetry 92 % Maddi Berry respiratory rate E&M 16 /min Maddi stanley pulse rate 77 /min Maddi garciaer weight E&M 245 [lb_av] Maddi David lder height E&M 66 [in_i] aMddi garciaer Body Mass Index (Ratio) 39.38 kg/m2 Juarez Maher MD blood pressure, diastolic 87 mm[Hg] Ri deny Arvizu blood pressure, systolic 156 mm[Hg] Humphrey shama Arvizu blood pressure, cuff size large Ri deny Arvizu oxygen saturation, oximetry 95 % Ann Arvizu respiratory rate E&M 16 /min Kimmy Arvizu pulse rate 85 /min Ann mcclure weight E&M 244 [lb_av] Ann mcclure height E&M 66 [in_i] Ann mcclure Body Mass Index (Ratio) 38.89 kg/m2 Otoniel Cordero blood pressure, cuff size large Ka tanya Tomer blood pressure, diastolic 80 mm[Hg] Ka tanya Tomer blood pressure, systolic 12 mm[Hg] Sandy rice [place] oxygen saturation, oximetry 96 % Nolvia [place] respiratory rate E&M 15 /min Nolvia [place] pulse rate 15 /min Nolvia [place] weight E&M 241 [lb_av] Nolvia [place] height E&M 66 [in_i] Nolvia Tomer Body Mass Index (Ratio) 39.06 kg/m2 Otoniel church Cordero blood pressure, diastolic 70 mm[Hg] Li nkLogic blood pressure, systolic 121 mm[Hg] Angelita kLogic blood pressure, cuff size large Sa ra Hendrickson blood pressure, diastolic 70 mm[Hg] Sa ra Hendrickson blood pressure, systolic 121 mm[Hg] Narinder a Hendrickson oxygen saturation, oximetry 95 % Nuria Hendrickson respiratory rate E&M 16 /min Nuria Si ms pulse rate 80 /min Nuria Hendrickson weight E&M 242 [lb_av] Nuria Hendrickson height E&M 66 [in_i] Nuria Hendrickson Body Mass Index (Ratio) 40.02 kg/m2 Juarez Maher MD blood pressure, cuff size large Hiren Berry blood pressure, diastolic 70 mm[Hg] Hiren Velasqueznenfelder blood pressure, systolic 142 mm[Hg] Yolis Agueroelder oxygen saturation, oximetry 94 % Maddi Husseiner respiratory rate E&M 16 /min Maddi Santiago ruenenfelder pulse rate 82 /min Maddi Hernandez lder weight E&M 248 [lb_av] Maddi Agueroe lder height E&M 66 [in_i] Maddi Hernandez [facility] Body Mass Index (Ratio) 39.38 kg/m2 Juarez Maher MD blood pressure, diastolic 80 mm[Hg] Hollie nkLogic blood pressure, systolic 154 mm[Hg] Angelita kLogic blood pressure, diastolic 80 mm[Hg] Emerald Haywood Choi blood pressure, systolic 154 mm[Hg] Rhoda Rosa Isela Choi oxygen saturation, oximetry 94 % Sergey Choi respiratory rate E&M 16 /min Percy lynnette JordanChoi pulse rate 73 /min Sergey Manzano rozina weight E&M 244 [lb_av] Sergey Jose Juan rozina height E&M 66 [in_i] Sergey Manzano [facility] Body Mass Index (Ratio) 39.38 kg/m2 Juarez Maher MD blood pressure, diastolic 89 mm[Hg] Ch astity Olivia blood pressure, systolic 179 mm[Hg] Mercedes stity Olivia oxygen saturation, oximetry 95 % Chastity Olivia pulse rate 75 /min Chastity Olivia weight E&M 244 [lb_av] Chastity Olivia respiratory rate E&M 16 /min Chastit y Olivia height E&M 66 [in_i] Bria Kellyue Body Mass Index (Ratio) 38.89 kg/m2 Juarez Maher MD blood pressure, cuff size regular Cy daniel Overton pulse rate 61 /min Ariane fowler blood pressure, diastolic 80 mm[Hg] Cy daniel Overton blood pressure, systolic 134 mm[Hg] Gabbi leela Overton oxygen saturation, oximetry 96 % Ariane Overton respiratory rate E&M 16 /min Ariane Overton weight E&M 241 [lb_av] Ariane fowler height E&M 66 [in_i] Ariane Sánchezbel l Body Mass Index (Ratio) 36.80 kg/m2 Juarez Maher MD blood pressure, diastolic 85 mm[Hg] Cy daniel Overton blood pressure, systolic 160 mm[Hg] Gabbi leela Overton weight E&M 228 [lb_av] Ariane Ernst l blood pressure, cuff size regular Cy daniel Overton pulse rate 100 /min Arianeleela Ernst l oxygen saturation, oximetry 97 % Ariane Overton respiratory rate E&M 16 /min Ariane Overton height E&M 66 [in_i] Ariane Sánchezbel l Body Mass Index (Ratio) 35.83 kg/m2 Arthur Medina MD blood pressure, diastolic 71 mm[Hg] To nsha Queen blood pressure, systolic 133 mm[Hg] Grayson Queen respiratory rate E&M 16 /min Tonsha Queen pulse rate 77 /min Tonsha Queen oxygen saturation, oximetry 96 % Tonsha Queen temperature E&M 98.3 [degF] Tonsha Queen weight E&M 222 [lb_av] Yuli Queen temperature site temporal Yuli Queen height E&M 66 [in_i] Yuli Queen Body Mass Index (Ratio) 35.02 kg/m2 Arthur Medina MD blood pressure, cuff size regular Cy daniel Overton blood pressure, diastolic 70 mm[Hg] Cy daniel Overton blood pressure, systolic 128 mm[Hg] Gabbi leela Overton oxygen saturation, oximetry 96 % Ariane Overton respiratory rate E&M 16 /min Ariane Overton pulse rate 69 /min Ariane fowler weight E&M 217 [lb_av] Ariane Ernst l height E&M 66 [in_i] Ariane fowler Body Mass Index (Ratio) 33.73 kg/m2 Jamir Plurad blood pressure, cuff size regular Cy daniel Overton blood pressure, diastolic 70 mm[Hg] Дмитрий Overton blood pressure, systolic 130 mm[Hg] Gabbi Overton oxygen saturation, oximetry 95 % Ariane Overton respiratory rate E&M 16 /min Ariane Overton pulse rate 58 /min Ariane fowler weight E&M 209 [lb_av] Ariane fowler height E&M 66 [in_i] Ariane Ernst l Body Mass Index (Ratio) 32.76 kg/m2 Juarez Maher MD blood pressure, resting Yes Noe a Jj blood pressure, diastolic 70 mm[Hg] Er ica Jj blood pressure, systolic 140 mm[Hg] Ros ca Jj oxygen saturation, oximetry 97 % Gracie Gardner pulse rate 53 /min Gracie Bhaskar Mancuso weight E&M 203 [lb_av] Gracie Bhaskar Mancuso height E&M 66 [in_i] Gracie MarkEugenia Bartolome Body Mass Index (Ratio) 32.12 kg/m2 Jamir Camacho blood pressure, cuff size regular Дмитрий Overton blood pressure, diastolic 62 mm[Hg] Дмитрий Overton blood pressure, systolic 128 mm[Hg] Gabbi Overton pulse rate 62 /min Ariane fowler oxygen saturation, oximetry 97 % Ariane Overton respiratory rate E&M 16 /min Ariane Overton height E&M 66 [in_i] Ariane fowler weight E&M 199 [lb_av] Ariane fowler ALLERGIES No Known Drug Allergies RESULTS Date Observation Value Provider Reference Range Interpretation Location lipoprotein, beta, serum, point, quantitative, calculated 70 mg/dL Link[facility] 0-99 very low density lipoproteins 16 mg/dL [facility] 5-40 HDL cholesterol, serum 38 mg/dL [facility] >39 Low triglyceride, serum, random 82 mg/dL [facility] 0-149 cholesterol, serum 124 mg/dL [facility] 100-199 HISTORY OF MEDICATION USE Medication Status Instructions Dates Provider Indications Com ments furosemide 20 mg tablet active TAKE 1 TABLET BY MOUTH ONCE DAILY 02/02 [place] metoprolol succinate 25 mg tablet extended release 24 hr active Take 1 tablet by mouth once a day 12/01 Terri Maher MD Lasix 20 mg tablet completed Take 1 tablet by mouth once a day 12/01 - 02/02 [place] pantoprazole 20 mg tablet,delayed release (DR/EC) active TAKE 1 TABLET BY MOUTH ONCE DAILY NEEDED 09/25 Zi North enalapril maleate 10 mg tablet active Take 1 tablet by mouth twice a day 02/10 Terri Maher MD clopidogrel 75 mg tablet active TAKE 1 TABLET BY MOUTH ONCE DAILY 01/03 Nidhi Trinidad enalapril maleate 5 mg tablet completed TAKE 1 TABLET BY MOUTH TWICE DAILY 01/03 - 02/10 Maddi Berry pantoprazole 20 mg tablet,delayed release (DR/EC) completed Take 1 tablet by mouth once a day as needed 09/09 - 09/25 Chandler Darrell pantoprazole 20 mg tablet,delayed release (DR/EC) completed TAKE 1 TABLET BY MOUTH ONCE DAILY NEEDED; STOP OMEPRAZOLE - 09/09 Maddi Berry Protonix 20 mg tablet,delayed release (DR/EC) completed Take 1 tablet by mouth once a day as needed STOP OMEPRAZOLE 04/05 - Mamie Morales [employer] Plavix 75 mg tablet completed Take 1 table t by mouth once a day 03/30 - 01/03 Sofiya Baires Plavix 75 mg tablet completed Take 1 table t by mouth once a day 09/11 - 03/30 David Sidhu RN Plavix 75 mg tablet completed Take 1 table t by mouth once a day 09/11 - 03/30 David Sidhu RN diclofenac sodium 75 mg tablet,delayed release (DR/EC) active 1 tablet by mouth twice a day 08/27 Terri Maher MD DICLOFENAC SODIUM 75 MG ORAL TABLET DELAYED RELEASE completed one tab daily 12/25 - 08/27 Ariane Overton METOPROLOL TARTRATE 25 MG TABS completed TAKE 1 TABLET BY MOUTH TWICE A DAY 04/03 - 08/27 Ariane Overton omeprazole 20 mg tablet,delayed release (DR/EC) completed Take 1 tablet by mouth once a day - 09/11 Ariane Overton TAMSULOSIN HCL 0.4 MG ORAL CAPSULE completed TAke 1 tablet once a day - 12/15 Ariane Overton cholecalciferol (vitamin D3) 25 mcg (1,000 unit) capsule active Take 1 tablet by mouth once a day Ariane Overton BRILINTA 90MG TAB completed TAKE 1 TABLET BY MOUTH TWICE A DAY 04/03 - 10/03 Ariane Overton metoprolol succinate 25 mg tablet extended release 24 hr completed 1 tablet by mouth once a day 05/15 - 04/17 Terri Maher MD hydrochlorothiazide 25 mg tablet active Take 1 tablet by mouth once a day 04/03 Sergey Choi enalapril maleate 10 mg tablet completed Take 1 tablet by mouth twice a day 10/25 - 01/03 Sofiya Baires cyanocobalamin (vitamin B-12) 1,000 mcg tablet active tablet by mouth 05/15 Hilda Mackay atorvastatin 80 mg tablet active Take 1 tablet by mouth once a day 10/08 Sergey Choi aspirin 81 mg tablet,delayed release (DR/EC) active 1 tablet by mouth once a day 05/15 Hidla Mackay SOCIAL HISTORY Date Observation Value Provider chewing tobacco use Never Terri Maher MD smoking status Never smoker Terri mead MD chewing tobacco use Never Terri Maher MD smoking status Never smoker Terri mead MD chewing tobacco use Never Dinorah munoz smoking status Never smoker Dinorah Doherty smoking status Never smoker Yani Butterfield social history reviewed E&M revi ewed - no changes required Terri Maher MD chewing tobacco use Never Yani pearl social history E&M S moking History: Estela gastelum is a former smoker. Terri Maher MD social history reviewed E&M revi ewed - no changes required Terri Maher MD smoking, year quit 1992 Yani mcdaniels cigarette use yes Yani Butterfield smoking status Former smoker Yani chowdhury social history E&M S moking History: Estela gastelum is a former smoker. Terri Maher MD social history reviewed E&M revi ewed - no changes required Terri Maher MD smoking, year quit 1992 Vita Grullon magui smoking history, tot al pack/day 1 PPD Vita Cochran cigarette use yes Vita Cochran smoking status Former smoker Vita Cochran smoking, year quit 1992 Maddi Benson concha smoking history, tot al pack/day 1 PPD Maddi Kristi cigarette use yes Maddi Drewwillie gonzalez smoking status Former smoker Maddi Stewart harpreet smoking, year quit 1992 Ann Arvizu smoking history, tot al pack/day 1 PPD Ann Arvizu cigarette use yes Ann Paul jourdan smoking status Former smoker Ann hart social history reviewed E&M revi ewed - no changes required Terri Maher MD social history E&M S moking History: Estela gastelum is a former smoker. Terri Maher MD social history reviewed E&M revi ewed - no changes required Terri Maher MD smoking, year quit 1992 Maddi Drewdiego kern smoking history, tot al pack/day 1 PPD Maddi Drewhailee cigarette use yes Maddi Drewwillie gonzalez smoking status Former smoker Maddi Stewart harpreet social history E&M S moking History: Estela gastelum is a former smoker. Terri Maher MD social history reviewed E&M revi ewed - no changes required Terri Maher MD smoking, year quit 1992 Sergey Choi smoking history, tot al pack/day 1 PPD Sergey Choi cigarette use yes Sergey sun smoking status Former smoker Sergey Fong social history reviewed E&M revi ewed - no changes required Terri Maher MD social history E&M S moking History: Estela gastelum is a former smoker. Terri Maher MD smoking, year quit 1992 Bria Olivia smoking history, tot al pack/day 1 PPD Bria Kellyue cigarette use yes Bria Olivia smoking status Former smoker Bria Kelly ue social history E&M S moking History: Estela gastelum is a former smoker. Terri Maher MD social history reviewed E&M revi ewed - no changes required Terri Maher MD smoking, year quit 1992 Ariane pelaez smoking history, tot al pack/day 1 PPD Ariane Tian cigarette use yes Ariane adhikari smoking status Former smoker Ariane Gonzalo piper social history E&M S moking History: Estela gastelum is a former smoker. Terri Maher MD social history reviewed E&M revi ewed - no changes required Terri Maher MD smoking, year quit 1992 Ariane pelaez smoking history, tot al pack/day 1 PPD Ariane Overton cigarette use yes Ariane Jeffries ll smoking status Former smoker Ariane piper social history reviewed E&M revi ewed - no changes required Mj Medina MD social history E&M S moking History: Estela gastelum is a former smoker. Yani Oliveira NP social history reviewed E&M revi ewed - no changes required Yani Oliveira NP smoking, year quit 1992 Ariane pelaez smoking history, tot al pack/day 1 PPD Ariane Overton cigarette use yes Ariane Mervin adhikari smoking status Former smoker Ariane Sánchez piper social history reviewed E&M revi ewed - no changes required Mamie Morales [facility] social history E&M S moking History: Estela gastelum is a former smoker. Mamie Marinoreneeneil [employer] smoking, year quit 1992 Ariane Beverly benigno smoking history, tot al pack/day 1 PPD Ariane Overton cigarette use yes Ariane Mervin adhikari smoking status Former smoker Ariane piper social history E&M S moking History: Estela gastelum is a former smoker. Jamir Plurad smoking, year quit 1992 Graciebroderick blevinson-Bartolome smoking history, tot al pack/day 1 PPD Gracie Flores-Bartolome cigarette use yes Gracie Flores -Bartolome smoking status Former smoker Gracie James on-Bartolome social history reviewed E&M revi ewed - no changes required Gracie Flores-Bartolome number of grandchildren Terri Maher MD social history reviewed E&M revi ewed - no changes required Terri Maher MD social history E&M S moking History: Estela gastelum is a former smoker. Terri Maher MD smoking history, tot al pack/day 1 PPD Ariane Tian smoking, year quit 1992 Ariane Siria pelaez cigarette use yes Ariane Mervin adhikari smoking status Former smoker Ariane piper FUNCTIONAL STATUS Date Observation Value Provider HRA, CV Assess/Plan, Angina (inactive) Management Plan continue current therapy Terri Maher MD HRA, CV Assess/Plan, Angina (inactive) Management Plan continue current therapy Terri Maher MD HRA, CV Assess/Plan, Angina (inactive) Management Plan continue current therapy Terri Maher MD HRA, CV Assess/Plan, Angina (inactive) Management Plan continue current therapy Terri Mhaer MD HRA, CV Assess/Plan, Angina (inactive) Management Plan continue current therapy Terri Maher MD HRA, CV Assess/Plan, Angina (inactive) Management Plan continue current therapy Terri Maher MD HRA, CV Assess/Plan, Angina (inactive) Management Plan continue current therapy Terri Maher MD HRA, CV Assess/Plan, Angina (inactive) Management Plan continue current therapy Terri Maher MD HRA, CV Assess/Plan, Angina (inactive) Management Plan continue current therapy Terri Maher MD HRA, CV Assess/Plan, Angina (inactive) Management Plan continue current therapy Terri Maher MD HRA, CV Assess/Plan, Angina (inactive) Management Plan continue current therapy Terri Maher MD HRA, CV Assess/Plan, Angina (inactive) Management Plan continue current therapy Yani Oliveira NP HRA, CV Assess/Plan, Angina (inactive) Management Plan continue current therapy Mamie Morales [employer] HRA, CV Assess/Plan, Angina (inactive) Management Plan continue current therapy Terri Maher MD FAMILY HISTORY Family Member Condition Father Family History of Hy pertension: Father Family History of Di abetes: Mother Family History of Di abetes: INSURANCE PROVIDERS Payer name Policy type / Coverage type [place] red republican ID [employer] MED[employer]ARE [employer]AGE [address] 0 [address] (HMO POS) Medicare [id number] ADVANCE DIRECTIVES Name Date DISCUSSED - NO DECISION MADE TREATMENT PLAN Date Name Performer [id number],C, R CEA h ad surgery Terri Maher MD [id number],C, P rior Hx. PCI stent RCA x 2 LIANE on 04/20/18. Needs DAPT until 2018. C hecked carotids. Abnormal. Follows with Dr. Paiz. Terri Maher MD [id number],Siria f ollowed with Dr. Paiz [facility] 05/2018 Conclusions: 1 . 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 2 . <50% stenosis of the right ICA. 3 . Vertebral flow is antegrade bilaterally. 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 O rigin of the left vertebral artery directly off the aortic arch is noted. M arked atherosclerotic plaque at the origin of the right vertebral artery. A therosclerotic plaque at the distal right vertebral artery as it enters the foramen magnum. A therosclerotic plaque in the mid basilar artery is noted. 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 T ortuosity to the internal carotid arteries bilaterally. S cattered plaque throughout the distal portions of the internal carotid arteries bilaterally are noted. P atent origins to the middle and anterior cerebral arteries bilaterally are noted. 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 NEEDS TO REMAIN ON PLAVIX INDEFINITELY FOR LIFETIME Terri Maher MD [id number],CC ollected: ?T ll 23 7:22 HARMAN Received: 05/12/23 7:22 HARMAN Verified: ?T ll 23 10:38 TP L IPID PANEL C HOLESTEROL 124 L 140 - 199 mg/dL T RIGLYCERIDES 70 0 - 150 mg/dL H DL CHOLESTEROL 45 40 mg/dL L DL CHOLESTEROL, CALCULATED GE 0 - 130 mg/dL H is updated medication list for this problem includes: Atorvastatin 80 Mg Tablet (Atorvastatin) ..... Take 1 tablet by mouth once a day Terri Maher MD [id number],C, P rior Hx. PCI stent RCA x 2 LIANE on 04/20/18. Needs DAPT until 2018. C hecked carotids. Abnormal. Follows with Dr. Paiz. Terri Maher MD [id number],C, r echeck echo since he has SOB E cho 07/11/21 CONCLUSIONS: 1 . Normal left ventricular systolic function. Normal left ventricular size. Mild concentric left ventricular hypertrophy. There is E to A wave reversal consistent with impaired LV relaxation. E/E': 12.0. Left ventricular ejection fraction is measured at 60 %. 2 . Normal right ventricular size. Normal right ventricular systolic function. 3 . No significant valvular abnormalities. Terri Maher MD [id number],C, R hythm: Sinus Rhythm with possible Bundle branch block, BBB A verage Heart Rate was 74 bpm M inimum Heart Rate was 59 bpm M aximum Heart Rate was 88 bpm. S inus Bradycardia minutes were 1179; and Sinus Tachycardia minutes were 36. V entricular Ectopy was 23, with 1 V-Pairs and 0 V-Runs. S upraVentricular Ectopy was 0, with 0 SV-Runs. April 01, 2023 c arotids reviewed, prior LICA stent Terri Maher MD [id number],C, f ollowed with Dr. Paiz [facility] 05/2018 Conclusions: 1 . 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 2 . <50% stenosis of the right ICA. 3 . Vertebral flow is antegrade bilaterally. 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 O rigin of the left vertebral artery directly off the aortic arch is noted. M arked atherosclerotic plaque at the origin of the right vertebral artery. A therosclerotic plaque at the distal right vertebral artery as it enters the foramen magnum. A therosclerotic plaque in the mid basilar artery is noted. 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 T ortuosity to the internal carotid arteries bilaterally. S cattered plaque throughout the distal portions of the internal carotid arteries bilaterally are noted. P atent origins to the middle and anterior cerebral arteries bilaterally are noted. 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 NEEDS TO REMAIN ON PLAVIX INDEFINITELY FOR LIFETIME Terri Maher MD [id number],S,repeat home s [facility] study Terri Maher MD [id number],S, H is updated medication list for this problem includes: Enalapril Maleate 5 Mg Tablet (Enalapril maleate) ..... Take 1 tablet by mouth twice a day Hydrochlorothiazide 25 Mg Tablet (Hydrochlorothiazide) ..... Take 1 tablet by mouth once a day Aspirin 81 Mg Tablet,delayed Release (dr/ec) (Aspirin) ..... 1 tablet by mouth once a day Terri Maher MD [id number],C,r echeck echo since he has SOB E cho 07/11/21 CONCLUSIONS: 1 . Normal left ventricular systolic function. Normal left ventricular size. Mild concentric left ventricular hypertrophy. There is E to A wave reversal consistent with impaired LV relaxation. E/E': 12.0. Left ventricular ejection fraction is measured at 60 %. 2 . Normal right ventricular size. Normal right ventricular systolic function. 3 . No significant valvular abnormalities. Terri Maher MD [id number],C C kanwal US R CEA L carotid stent x2 C ONCLUSIONS: 1 . Mild plaque with less than 50% stenosis of the internal carotid arteries bilaterally. 2 . Vertebral flow is antegrade bilaterally. 3 . He had 7-10 x 40 acculink stent advanced into LCA, into the ICA. E lectronically signed by Terri Maher MD on 10/13/2022 at 5:01 PM Terri Maher MD [id number],C,C ovid last month, sob, check cardiac status also getting left arm discomfort Terri Maher MD [id number],C,S OB, VALERA, may need new work up for SONAL check PFT echo nuc stress Terri Maher MD [id number],S,F ollowed by PCP His updated medication list for this problem includes: Atorvastatin 80 Mg Tablet (Atorvastatin) ..... Take 1 tablet by mouth once a day C HOL: 124 (12/19/2018) HDL: 38 (12/19/2018) Terri Maher MD [id number],S, S R on EKG April 03, 2021 d oubt his dizziness is related to bradycardia his hr is in 70s WILL GET TELE MONITOR TO DETERMINE IF THERE ARE SIGNIFICANT PAUSES LEADING TO THE DIZZINESS AND MAYNEED TO COME OFF BETABLOCKERS Terri Maher MD [id number],C, H is updated medication list for this problem includes: Enalapril Maleate 10 Mg Tablet (Enalapril maleate) ..... Take 1 tablet by mouth twice a day Hydrochlorothiazide 25 Mg Tablet (Hydrochlorothiazide) ..... Take 1 tablet by mouth once a day Aspirin 81 Mg Tablet,delayed Release (dr/ec) (Aspirin) ..... 1 tablet by mouth once a day BP today: 145/84 Prior BP: 124/68 (09/24/2022) Labs Reviewed: C hol: 124 (12/19/2018) HDL: 38 (12/19/2018) Terri Maher MD [id number],C, C kanwal US R CEA L carotid stent x2 C ONCLUSIONS: 1 . Mild plaque with less than 50% stenosis of the internal carotid arteries bilaterally. 2 . Vertebral flow is antegrade bilaterally. 3 . He had 7-10 x 40 acculink stent advanced into LCA, into the ICA. E lectronically signed by Terri Maher MD on 10/13/2022 at 5:01 PM Terri Maher MD [id number] E cho 07/11/21 CONCLUSIONS: 1 . Normal left ventricular systolic function. Normal left ventricular size. Mild concentric left ventricular hypertrophy. There is E to A wave reversal consistent with impaired LV relaxation. E/E': 12.0. Left ventricular ejection fraction is measured at 60 %. 2 . Normal right ventricular size. Normal right ventricular systolic function. 3 . No significant valvular abnormalities. Terri Maher MD [id number],C,I ncrease enalipril to 10mg BID H is updated medication list for this problem includes: Enalapril Maleate 10 Mg Tablet (Enalapril maleate) ..... Take 1 tablet by mouth twice a day Enalapril Maleate 10 Mg Tablet (Enalapril maleate) ..... Take 1 tablet by mouth twice a day Hydrochlorothiazide 25 Mg Tablet (Hydrochlorothiazide) ..... Take 1 tablet by mouth once a day Aspirin 81 Mg Tablet,delayed Release (dr/ec) (Aspirin) ..... 1 tablet by mouth once a day Terri Maher MD [id number],C,C kanwal R CEA L carotid stent Terri Maher MD [id number],S, Terri perez MD [id number],C,C HOL: 124 (12/19/2018) HDL: 38 (12/19/2018) labs with kathie H is updated medication list for this problem includes: Atorvastatin 80 Mg Tablet (Atorvastatin) ..... Take 1 tablet by mouth once a day Terri Maher MD [id number],C, H is updated medication list for this problem includes: Enalapril Maleate 2.5 Mg Tablet (Enalapril maleate) ..... Take 1 tablet by mouth twice a day Hydrochlorothiazide 25 Mg Tablet (Hydrochlorothiazide) ..... Take 1 tablet by mouth once a day Aspirin 81 Mg Tablet,delayed Release (dr/ec) (Aspirin) ..... 1 tablet by mouth once a day Terri Maher MD [id number],Cheryl Beverly cho 07/11/21 CONCLUSIONS: 1 . Normal left ventricular systolic function. Normal left ventricular size. Mild concentric left ventricular hypertrophy. There is E to A wave reversal consistent with impaired LV relaxation. E/E': 12.0. Left ventricular ejection fraction is measured at 60 %. 2 . Normal right ventricular size. Normal right ventricular systolic function. 3 . No significant valvular abnormalities. Terri Maher MD [id number],Siria P rior Hx. PCI stent RCA x 2 LIANE on 04/20/18. Needs DAPT until 2018. C hecked carotids. Abnormal. Follows with Dr. Paiz. Terri Maher MD [id number],Siria, R CEA Terri Maher MD [id number],C, f ollowed with Dr. Paiz [facility] 05/2018 Conclusions: 1 . 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 2 . <50% stenosis of the right ICA. 3 . Vertebral flow is antegrade bilaterally. 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 O rigin of the left vertebral artery directly off the aortic arch is noted. M arked atherosclerotic plaque at the origin of the right vertebral artery. A therosclerotic plaque at the distal right vertebral artery as it enters the foramen magnum. A therosclerotic plaque in the mid basilar artery is noted. 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 T ortuosity to the internal carotid arteries bilaterally. S cattered plaque throughout the distal portions of the internal carotid arteries bilaterally are noted. P atent origins to the middle and anterior cerebral arteries bilaterally are noted. 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 NEEDS TO REMAIN ON PLAVIX INDEFINITELY FOR LIFETIME Terri Maher MD [id number],C, R hythm: Sinus Rhythm with possible Bundle branch block, BBB A verage Heart Rate was 74 bpm M inimum Heart Rate was 59 bpm M aximum Heart Rate was 88 bpm. S inus Bradycardia minutes were 1179; and Sinus Tachycardia minutes were 36. V entricular Ectopy was 23, with 1 V-Pairs and 0 V-Runs. S upraVentricular Ectopy was 0, with 0 SV-Runs. Terri Maher MD [id number],C, R CEA Terri Maher MD [id number],C, R CEA Terri Maher MD [id number],C, H is updated medication list for this problem includes: Atorvastatin 80 Mg Tablet (Atorvastatin) ..... Take 1 tablet by mouth once a day Terri Maher MD [id number],S, f ollowed with Dr. Paiz [facility] 05/2018 Conclusions: 1 . 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 2 . <50% stenosis of the right ICA. 3 . Vertebral flow is antegrade bilaterally. 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 O rigin of the left vertebral artery directly off the aortic arch is noted. M arked atherosclerotic plaque at the origin of the right vertebral artery. A therosclerotic plaque at the distal right vertebral artery as it enters the foramen magnum. A therosclerotic plaque in the mid basilar artery is noted. 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 T ortuosity to the internal carotid arteries bilaterally. S cattered plaque throughout the distal portions of the internal carotid arteries bilaterally are noted. P atent origins to the middle and anterior cerebral arteries bilaterally are noted. 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 NEEDS TO REMAIN ON PLAVIX INDEFINITELY FOR LIFETIME Terri Maher MD [id number],C,E cho 07/11/21 CONCLUSIONS: 1 . Normal left ventricular systolic function. Normal left ventricular size. Mild concentric left ventricular hypertrophy. There is E to A wave reversal consistent with impaired LV relaxation. E/E': 12.0. Left ventricular ejection fraction is measured at 60 %. 2 . Normal right ventricular size. Normal right ventricular systolic function. 3 . No significant valvular abnormalities. Terri Maher MD [id number],C, P rior Hx. PCI stent RCA x 2 LIANE on 04/20/18. Needs DAPT until 2018. C hecked carotids. Abnormal. Follows with Dr. Paiz. Terri Maher MD [id number],C, N egative SONAL workup. Terri Maher MD [id number],C, R CEA Terri Maher MD [id number],C, T here is non-specific thickening of the mitral valve leaflets. Mild to moderate mitral valve regurgitation. Check echo and evaluate for progression of MR, may need to have BARBARA done. June 19, [address] have echo done to eval his mitral vlave Terri Maher MD [id number],C, R hythm: Sinus Rhythm with possible Bundle branch block, BBB A verage Heart Rate was 74 bpm M inimum Heart Rate was 59 bpm M aximum Heart Rate was 88 bpm. S inus Bradycardia minutes were 1179; and Sinus Tachycardia minutes were 36. V entricular Ectopy was 23, with 1 V-Pairs and 0 V-Runs. S upraVentricular Ectopy was 0, with 0 SV-Runs. Terri Maher MD [id number],C, f ollowed with Dr. Paiz [facility] 05/2018 Conclusions: 1 . 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 2 . <50% stenosis of the right ICA. 3 . Vertebral flow is antegrade bilaterally. 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 O rigin of the left vertebral artery directly off the aortic arch is noted. M arked atherosclerotic plaque at the origin of the right vertebral artery. A therosclerotic plaque at the distal right vertebral artery as it enters the foramen magnum. A therosclerotic plaque in the mid basilar artery is noted. 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 T ortuosity to the internal carotid arteries bilaterally. S cattered plaque throughout the distal portions of the internal carotid arteries bilaterally are noted. P atent origins to the middle and anterior cerebral arteries bilaterally are noted. O ct2020 h e had stenting of the ICA with 7-10 x 40 acculink at [facility], 06/10/[address] Kam, on DAPT Terri Maher MD [id number],C, T he following medications were removed from the medication list: Metoprolol Succinate 25 Mg Tablet Extended Release 24 Hr (Metoprolol succinate) ..... 1 tablet by mouth once a day His updated medication list for this problem includes: Enalapril Maleate 2.5 Mg Tablet (Enalapril maleate) ..... Take 1 tablet by mouth twice a day Hydrochlorothiazide 25 Mg Tablet (Hydrochlorothiazide) ..... Take 1 tablet by mouth once a day Aspirin 81 Mg Tablet,delayed Release (dr/ec) (Aspirin) ..... 1 tablet by mouth once a day BP today: 154/80 P rior BP: 179/89 (04/03/2021) Labs Reviewed: C hol: 124 (12/19/2018) HDL: 38 (12/19/2018) Terri Maher MD [id number],C f ollowed with Dr. Paiz [facility] 05/2018 Conclusions: 1 . 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 2 . <50% stenosis of the right ICA. 3 . Vertebral flow is antegrade bilaterally. 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 O rigin of the left vertebral artery directly off the aortic arch is noted. M arked atherosclerotic plaque at the origin of the right vertebral artery. A therosclerotic plaque at the distal right vertebral artery as it enters the foramen magnum. A therosclerotic plaque in the mid basilar artery is noted. 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 T ortuosity to the internal carotid arteries bilaterally. S cattered plaque throughout the distal portions of the internal carotid arteries bilaterally are noted. P atent origins to the middle and anterior cerebral arteries bilaterally are noted. Terri Maher MD [id number],C,R hythm: Sinus Rhythm with possible Bundle branch block, BBB A verage Heart Rate was 74 bpm M inimum Heart Rate was 59 bpm M aximum Heart Rate was 88 bpm. S inus Bradycardia minutes were 1179; and Sinus Tachycardia minutes were 36. V entricular Ectopy was 23, with 1 V-Pairs and 0 V-Runs. S upraVentricular Ectopy was 0, with 0 SV-Runs. Terri Maher MD [id number],C, R CEA Terri Maher MD [id number],C, S R on EKG April 03, 2021 d oubt his dizziness is related to bradycardia his hr is in 70s WILL GET TELE MONITOR TO DETERMINE IF THERE ARE SIGNIFICANT PAUSES LEADING TO THE DIZZINESS AND MAYNEED TO COME OFF BETABLOCKERS Terri Maher MD [id number],C, H is updated medication list for this problem includes: Aspirin Ec 81 Mg Oral Tablet Delayed Release (Aspirin) ..... One tab daily Metoprolol Succinate Er 25 Mg Oral Tablet Extended Release 24 Hour (Metoprolol succinate) ..... One tablet per day Hydrochlorothiazide 25mg Tab (Hydrochlorothiazide) ..... Take 1 tablet by mouth daily Enalapril 2.5mg Tab (Enalapril maleate) ..... Take 1 tablet by mouth twice daily Terri Maher MD [id number],C, f ollowed with Dr. Paiz [facility] 05/2018 Conclusions: 1 . 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 2 . <50% stenosis of the right ICA. 3 . Vertebral flow is antegrade bilaterally. Terri Maher MD [id number],S,u nclear whether his sx are related to BP or coratid disease. recommend he get CTA done. arrange for CTA carotid at [facility] check heart monitor evaluate for bradycardia and pauses Terri Maher MD Cardiology: A dded metoprolol XL 25 daily P rior Hx. PCI stent RCA x 2 LIANE on 04/20/18. Needs DAPT until 2018. C hecked carotids. Abnormal. Follows with Dr. Paiz. carotid 9CONCLUSIONS: 1 . Mild plaque with less than 50% stenosis of the internal carotid arteries bilaterally. 2 . Patent left carotid stenting without evidence of ISR. 3 . Left Vertebral flow is antegrade. Right Vertebral flow is absent, known to be occluded by CTA. Terri Maher MD Cardiology:currently not dizzy on BB T his visit has been a part of the consistent, comprehensive, and ongoing management of the chronic medical condition(s) listed above for the patient. H is updated medication list for this problem includes: Furosemide 20 Mg Tablet (Furosemide) ..... Take 1 tablet by mouth once daily Metoprolol Succinate 25 Mg Tablet Extended Release 24 Hr (Metoprolol succinate) ..... Take 1 tablet by mouth once a day Enalapril Maleate 10 Mg Tablet (Enalapril maleate) ..... Take 1 tablet by mouth twice a day Hydrochlorothiazide 25 Mg Tablet (Hydrochlorothiazide) ..... Take 1 tablet by mouth once a day Aspirin 81 Mg Tablet,delayed Release (dr/ec) (Aspirin) ..... 1 tablet by mouth once a day BP today: 142/73 P rior BP: 146/-1 (02/15/2024) Labs Reviewed: C hol: 124 (12/19/2018) HDL: 38 (12/19/2018) LDL: 70 (12/19/2018) T (12/19/2018) Terri Maher MD Cardiology: C urrently not bradycardic anymore. Will ad metoprolol XL This visit has been a part of the consistent, comprehensive, and ongoing management of the chronic medical condition(s) listed above for the patient. s table on metorprolol. hr 51. Terri Maher MD Cardiology:Carotid U S fro, 05/18/24 CONCLUSIONS: 1 . Mild plaque with less than 50% stenosis of the internal carotid arteries bilaterally. 2 . Patent left carotid stenting without evidence of ISR. 3 . Left Vertebral flow is antegrade. Right Vertebral flow is absent, known to be occluded by CTA. Terri Maher MD Cardiology: s ome improvement in copd with albuterol Terri Maher MD Cardiology: r echeck echo since he has SOB E cho 07/11/21 CONCLUSIONS: 1 . Normal left ventricular systolic function. Normal left ventricular size. Mild concentric left ventricular hypertrophy. There is E to A wave reversal consistent with impaired LV relaxation. E/E': 12.0. Left ventricular ejection fraction is measured at 60 %. 2 . Normal right ventricular size. Normal right ventricular systolic function. 3 . No significant valvular abnormalities. This visit has been a part of the consistent, comprehensive, and ongoing management of the chronic medical condition(s) listed above for the patient. Terri Maher MD Cardiology:This visi t has been a part of the consistent, comprehensive, and ongoing management of the chronic medical condition(s) listed above for the patient. His updated medication list for this problem includes: Atorvastatin 80 Mg Tablet (Atorvastatin) ..... Take 1 tablet by mouth once a day Terri Maher MD Cardiology: R CEA h ad surgery T his visit has been a part of the consistent, comprehensive, and ongoing management of the chronic medical condition(s) listed above for the patient. Terri Maher MD Cardiology:This visi t has been a part of the consistent, comprehensive, and ongoing management of the chronic medical condition(s) listed above for the patient. Check US R CEA L carotid stent x2 C ONCLUSIONS: 1 . Mild plaque with less than 50% stenosis of the internal carotid arteries bilaterally. 2 . Vertebral flow is antegrade bilaterally. 3 . He had 7-10 x 40 acculink stent advanced into LCA, into the ICA. E lectronically signed by Terri Maher MD on 10/13/2022 at 5:01 PM Terri Maher MD Cardiology:This visi t has been a part of the consistent, comprehensive, and ongoing management of the chronic medical condition(s) listed above for the patient. followed with Dr. Paiz [facility] 1 Conclusions: 1 . 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 2 . <50% stenosis of the right ICA. 3 . Vertebral flow is antegrade bilaterally. 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 O rigin of the left vertebral artery directly off the aortic arch is noted. M arked atherosclerotic plaque at the origin of the right vertebral artery. A therosclerotic plaque at the distal right vertebral artery as it enters the foramen magnum. A therosclerotic plaque in the mid basilar artery is noted. 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 T ortuosity to the internal carotid arteries bilaterally. Scattered plaque throughout the distal portions of the internal carotid arteries bilaterally are noted. P atent origins to the middle and anterior cerebral arteries bilaterally are noted. 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 NEEDS TO REMAIN ON PLAVIX INDEFINITELY FOR LIFETIME Terri Maher MD Cardiology:some improvement in c opd with albuterol Terri Maher MD Cardiology: r echeck echo since he has SOB E cho 07/11/21 CONCLUSIONS: 1 . Normal left ventricular systolic function. Normal left ventricular size. Mild concentric left ventricular hypertrophy. There is E to A wave reversal consistent with impaired LV relaxation. E/E': 12.0. Left ventricular ejection fraction is measured at 60 %. 2 . Normal right ventricular size. Normal right ventricular systolic function. 3 . No significant valvular abnormalities. This visit has been a part of the consistent, comprehensive, and ongoing management of the chronic medical condition(s) listed above for the patient. Terri Maher MD Cardiology:Currently not bradycardic anymore. Will ad metoprolol XL Terri Maher MD Cardiology:Feels a l ot of his sx may be related since has COVID. Unclear to me if there is ISR Covid problems SONAL. Will need to recheck cardiac cath. Terri Maher MD Cardiology: S OB, VALERA, may need new work up for SONAL check PFT echo nuc stress I Ncrease enalapril 10 mg 2x/day. Will add lasix 20 mg daily. Terri Maher MD Cardiology:Added met oprolol XL 25 daily P rior Hx. PCI stent RCA x 2 LIANE on 04/20/18. Needs DAPT until 2018. C hecked carotids. Abnormal. Follows with Dr. Paiz. Terri Maher MD Cardiology: R CEA h ad surgery Terri Maher MD Cardiology: P rior Hx. PCI stent RCA x 2 LIANE on 04/20/18. Needs DAPT until Sept. 2019. C hecked carotids. Abnormal. Follows with Dr. Paiz. Terri Maher MD Cardiology: f ollowed with Dr. Paiz [facility] 05/2018 Conclusions: 1 . 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 2 . <50% stenosis of the right ICA. 3. Vertebral flow is antegrade bilaterally. 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 O rigin of the left vertebral artery directly off the aortic arch is noted. M arked atherosclerotic plaque at the origin of the right vertebral artery. A therosclerotic plaque at the distal right vertebral artery as it enters the foramen magnum. A therosclerotic plaque in the mid basilar artery is noted. 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 T ortuosity to the internal carotid arteries bilaterally. S cattered plaque throughout the distal portions of the internal carotid arteries bilaterally are noted. P atent origins to the middle and anterior cerebral arteries bilaterally are noted. 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 NEEDS TO REMAIN ON PLAVIX INDEFINITELY FOR LIFETIME Terri Maher MD Cardiology:Collected : ?T ll 23 7:22 HARMAN Received: 05/12/23 7:22 HARMAN Verified: ?T ll 23 10:38 TP L IPID PANEL C HOLESTEROL 124 L 140 - 199 mg/dL T RIGLYCERIDES 70 0 - 150 mg/dL H DL CHOLESTEROL 45 40 mg/dL L DL CHOLESTEROL, CALCULATED GE 0 - 130 mg/dL H is updated medication list for this problem includes: Atorvastatin 80 Mg Tablet (Atorvastatin) ..... Take 1 tablet by mouth once a day Terri Maher MD Cardiology: P rior Hx. PCI stent RCA x 2 LIANE on 04/20/18. Needs DAPT until 2018. C hecked carotids. Abnormal. Follows with Dr. Paiz. Terri Maher MD Cardiology: r echeck echo since he has SOB E cho 07/11/21 CONCLUSIONS: 1 . Normal left ventricular systolic function. Normal left ventricular size. Mild concentric left ventricular hypertrophy. There is E to A wave reversal consistent with impaired LV relaxation. E/E': 12.0. Left ventricular ejection fraction is measured at 60 %. 2 . Normal right ventricular size. Normal right ventricular systolic function. 3 . No significant valvular abnormalities. Terri Maher MD Cardiology: R hythm: Sinus Rhythm with possible Bundle branch block, BBB A verage Heart Rate was 74 bpm M inimum Heart Rate was 59 bpm M aximum Heart Rate was 88 bpm. S inus Bradycardia minutes were 1179; and Sinus Tachycardia minutes were 36. V entricular Ectopy was 23, with 1 V-Pairs and 0 V-Runs. S upraVentricular Ectopy was 0, with 0 SV-Runs. April 01, 2023 c arotids reviewed, prior LICA stent Terri Maher MD Cardiology: f ollowed with Dr. Paiz [facility] 05/2018 Conclusions: 1 . 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 2 . <50% stenosis of the right ICA. 3. Vertebral flow is antegrade bilaterally. 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 O rigin of the left vertebral artery directly off the aortic arch is noted. M arked atherosclerotic plaque at the origin of the right vertebral artery. A therosclerotic plaque at the distal right vertebral artery as it enters the foramen magnum. A therosclerotic plaque in the mid basilar artery is noted. 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 T ortuosity to the internal carotid arteries bilaterally. S cattered plaque throughout the distal portions of the internal carotid arteries bilaterally are noted. P atent origins to the middle and anterior cerebral arteries bilaterally are noted. 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 NEEDS TO REMAIN ON PLAVIX INDEFINITELY FOR LIFETIME Terri Maher MD Cardiology:repeat home sleep yvette dy Terri Maher MD Cardiology: H is updated medication list for this problem includes: Enalapril Maleate 5 Mg Tablet (Enalapril maleate) ..... Take 1 tablet by mouth twice a day Hydrochlorothiazide 25 Mg Tablet (Hydrochlorothiazide) ..... Take 1 tablet by mouth once a day Aspirin 81 Mg Tablet,delayed Release (dr/ec) (Aspirin) ..... 1 tablet by mouth once a day Terri Maher MD Cardiology:recheck e cho since he has SOB E cho 07/11/21 CONCLUSIONS: 1 . Normal left ventricular systolic function. Normal left ventricular size. Mild concentric left ventricular hypertrophy. There is E to A wave reversal consistent with impaired LV relaxation. E/E': 12.0. Left ventricular ejection fraction is measured at 60 %. 2 . Normal right ventricular size. Normal right ventricular systolic function. 3 . No significant valvular abnormalities. Terri Maher MD Cardiology: Siria schofield US R CEA L carotid stent x2 C ONCLUSIONS: 1 . Mild plaque with less than 50% stenosis of the internal carotid arteries bilaterally. 2 . Vertebral flow is antegrade bilaterally. 3 . He had 7-10 x 40 acculink stent advanced into LCA, into the ICA. E lectronically signed by Terri Maher MD on 10/13/2022 at 5:01 PM Terri Maher MD Cardiology:Covid las t month, sob, check cardiac status also getting left arm discomfort Terri Maher MD Cardiology:SOB, VALERA, may need new work up for SONAL check PFT echo nuc stress Terri Maher MD Cardiology:Followed by PCP His updated medication list for this problem includes: Atorvastatin 80 Mg Tablet (Atorvastatin) ..... Take 1 tablet by mouth once a day C HOL: 124 (12/19/2018) HDL: 38 (12/19/2018) Terri Maher MD Cardiology: S R on EKG April 03, 2021 d oubt his dizziness is related to bradycardia his hr is in 70s WILL GET TELE MONITOR TO DETERMINE IF THERE ARE SIGNIFICANT PAUSES LEADING TO THE DIZZINESS AND MAYNEED TO COME OFF BETABLOCKERS Terri Maher MD Cardiology: H is updated medication list for this problem includes: Enalapril Maleate 10 Mg Tablet (Enalapril maleate) ..... Take 1 tablet by mouth twice a day Hydrochlorothiazide 25 Mg Tablet (Hydrochlorothiazide) ..... Take 1 tablet by mouth once a day Aspirin 81 Mg Tablet,delayed Release (dr/ec) (Aspirin) ..... 1 tablet by mouth once a day BP today: 145/84 P rior BP: 124/68 (09/24/2022) Labs Reviewed: C hol: 124 (12/19/2018) HDL: 38 (12/19/2018) Terri Maher MD Cardiology: Siria schofield US R CEA L carotid stent x2 C ONCLUSIONS: 1 . Mild plaque with less than 50% stenosis of the internal carotid arteries bilaterally. 2 . Vertebral flow is antegrade bilaterally. 3 . He had 7-10 x 40 acculink stent advanced into LCA, into the ICA. E lectronically signed by Terri Maher MD on 10/13/2022 at 5:01 PM Terri Maher MD Cardiology: E cho 07/11/21 CONCLUSIONS: 1 . Normal left ventricular systolic function. Normal left ventricular size. Mild concentric left ventricular hypertrophy. There is E to A wave reversal consistent with impaired LV relaxation. E/E': 12.0. Left ventricular ejection fraction is measured at 60 %. 2 . Normal right ventricular size. Normal right ventricular systolic function. 3 . No significant valvular abnormalities. Terri Maher MD Cardiology:Increase enalipril to 10mg BID H is updated medication list for this problem includes: Enalapril Maleate 10 Mg Tablet (Enalapril maleate) ..... Take 1 tablet by mouth twice a day Enalapril Maleate 10 Mg Tablet (Enalapril maleate) ..... Take 1 tablet by mouth twice a day Hydrochlorothiazide 25 Mg Tablet (Hydrochlorothiazide) ..... Take 1 tablet by mouth once a day Aspirin 81 Mg Tablet,delayed Release (dr/ec) (Aspirin) ..... 1 tablet by mouth once a day Terri Maher MD Cardiology:Check US R CEA L carotid stent Terri Maher MD Cardiology Terri Maher MD Cardiology:CHOL: 124 (12/19/2018) HDL: 38 (12/19/2018) labs with kathie H is updated medication list for this problem includes: Atorvastatin 80 Mg Tablet (Atorvastatin) ..... Take 1 tablet by mouth once a day Terri Maher MD Cardiology: H is updated medication list for this problem includes: Enalapril Maleate 2.5 Mg Tablet (Enalapril maleate) ..... Take 1 tablet by mouth twice a day Hydrochlorothiazide 25 Mg Tablet (Hydrochlorothiazide) ..... Take 1 tablet by mouth once a day Aspirin 81 Mg Tablet,delayed Release (dr/ec) (Aspirin) ..... 1 tablet by mouth once a day Terri Maher MD Cardiology: E cho 07/11/21 CONCLUSIONS: 1 . Normal left ventricular systolic function. Normal left ventricular size. Mild concentric left ventricular hypertrophy. There is E to A wave reversal consistent with impaired LV relaxation. E/E': 12.0. Left ventricular ejection fraction is measured at 60 %. 2 . Normal right ventricular size. Normal right ventricular systolic function. 3 . No significant valvular abnormalities. Terri Maher MD Cardiology: P rior Hx. PCI stent RCA x 2 LIANE on 04/20/18. Needs DAPT until 2018. C hecked carotids. Abnormal. Follows with Dr. Paiz. Terri Maher MD Cardiology: R HEIDY Maher MD Cardiology: f ollowed with Dr. Paiz [facility] 05/2018 Conclusions: 1 . 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 2 . <50% stenosis of the right ICA. 3. Vertebral flow is antegrade bilaterally. 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 O rigin of the left vertebral artery directly off the aortic arch is noted. M arked atherosclerotic plaque at the origin of the right vertebral artery. A therosclerotic plaque at the distal right vertebral artery as it enters the foramen magnum. A therosclerotic plaque in the mid basilar artery is noted. 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 T ortuosity to the internal carotid arteries bilaterally. S cattered plaque throughout the distal portions of the internal carotid arteries bilaterally are noted. P atent origins to the middle and anterior cerebral arteries bilaterally are noted. 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 NEEDS TO REMAIN ON PLAVIX INDEFINITELY FOR LIFETIME Terri Maher MD Cardiology: R hythm: Sinus Rhythm with possible Bundle branch block, BBB A verage Heart Rate was 74 bpm M inimum Heart Rate was 59 bpm M aximum Heart Rate was 88 bpm. S inus Bradycardia minutes were 1179; and Sinus Tachycardia minutes were 36. V entricular Ectopy was 23, with 1 V-Pairs and 0 V-Runs. S upraVentricular Ectopy was 0, with 0 SV-Runs. Terri Maher MD Cardiology: R HEIDY Maher MD Cardiology: R CEA Terri Maher MD Cardiology: H is updated medication list for this problem includes: Atorvastatin 80 Mg Tablet (Atorvastatin) ..... Take 1 tablet by mouth once a day Terri Maher MD Cardiology: f ollowed with Dr. Paiz [facility] 05/2018 Conclusions: 1 . 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 2 . <50% stenosis of the right ICA. 3. Vertebral flow is antegrade bilaterally. 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 O rigin of the left vertebral artery directly off the aortic arch is noted. M arked atherosclerotic plaque at the origin of the right vertebral artery. A therosclerotic plaque at the distal right vertebral artery as it enters the foramen magnum. A therosclerotic plaque in the mid basilar artery is noted. 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 T ortuosity to the internal carotid arteries bilaterally. S cattered plaque throughout the distal portions of the internal carotid arteries bilaterally are noted. P atent origins to the middle and anterior cerebral arteries bilaterally are noted. 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 NEEDS TO REMAIN ON PLAVIX INDEFINITELY FOR LIFETIME Terri Maher MD Cardiology:Echo 06/23 CONCLUSIONS: 1 . Normal left ventricular systolic function. Normal left ventricular size. Mild concentric left ventricular hypertrophy. There is E to A wave reversal consistent with impaired LV relaxation. E/E': 12.0. Left ventricular ejection fraction is measured at 60 %. 2 . Normal right ventricular size. Normal right ventricular systolic function. 3 . No significant valvular abnormalities. Terri Maher MD Cardiology: P rior Hx. PCI stent RCA x 2 LIANE on 04/20/18. Needs DAPT until 2018. C hecked carotids. Abnormal. Follows with Dr. Paiz. Terri Maher MD Cardiology: N egative SONAL workup. Terri Maher MD Cardiology: R CEA Terri Maher MD Cardiology: T here is non-specific thickening of the mitral valve leaflets. Mild to moderate mitral valve regurgitation. Check echo and evaluate for progression of MR, may need to have BARBARA done. June 19, 2021 n eed sto have echo done to eval his mitral vlave Terri Maher MD Cardiology: R hythm: Sinus Rhythm with possible Bundle branch block, BBB A verage Heart Rate was 74 bpm M inimum Heart Rate was 59 bpm M aximum Heart Rate was 88 bpm. S inus Bradycardia minutes were 1179; and Sinus Tachycardia minutes were 36. V entricular Ectopy was 23, with 1 V-Pairs and 0 V-Runs. S upraVentricular Ectopy was 0, with 0 SV-Runs. Terri Maher MD Cardiology: f ollowed with Dr. Paiz [facility] 05/2018 Conclusions: 1 . 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 2 . <50% stenosis of the right ICA. 3. Vertebral flow is antegrade bilaterally. 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 O rigin of the left vertebral artery directly off the aortic arch is noted. M arked atherosclerotic plaque at the origin of the right vertebral artery. A therosclerotic plaque at the distal right vertebral artery as it enters the foramen magnum. A therosclerotic plaque in the mid basilar artery is noted. 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 T ortuosity to the internal carotid arteries bilaterally. S cattered plaque throughout the distal portions of the internal carotid arteries bilaterally are noted. P atent origins to the middle and anterior cerebral arteries bilaterally are noted. O ctober 29, 2021 h e had stenting of the ICA with 7-10 x 40 acculink at [facility], 06/10/[address] Kam, on DAPT Terri Maher MD Cardiology: T he following medications were removed from the medication list: Metoprolol Succinate 25 Mg Tablet Extended Release 24 Hr (Metoprolol succinate) ..... 1 tablet by mouth once a day His updated medication list for this problem includes: Enalapril Maleate 2.5 Mg Tablet (Enalapril maleate) ..... Take 1 tablet by mouth twice a day Hydrochlorothiazide 25 Mg Tablet (Hydrochlorothiazide) ..... Take 1 tablet by mouth once a day Aspirin 81 Mg Tablet,delayed Release (dr/ec) (Aspirin) ..... 1 tablet by mouth once a day BP today: 154/80 P rior BP: 179/89 (04/03/2021) Labs Reviewed: C hol: 124 (12/19/2018) HDL: 38 (12/19/2018) Terri Maher MD Cardiology: f ollowed with Dr. Paiz [facility] 05/2018 Conclusions: 1 . 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 2 . <50% stenosis of the right ICA. 3. Vertebral flow is antegrade bilaterally. 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 O rigin of the left vertebral artery directly off the aortic arch is noted. M arked atherosclerotic plaque at the origin of the right vertebral artery. A therosclerotic plaque at the distal right vertebral artery as it enters the foramen magnum. A therosclerotic plaque in the mid basilar artery is noted. 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 T ortuosity to the internal carotid arteries bilaterally. S cattered plaque throughout the distal portions of the internal carotid arteries bilaterally are noted. P atent origins to the middle and anterior cerebral arteries bilaterally are noted. Terri Maher MD Cardiology:Rhythm: S inus Rhythm with possible Bundle branch block, BBB A verage Heart Rate was 74 bpm M inimum Heart Rate was 59 bpm M aximum Heart Rate was 88 bpm. S inus Bradycardia minutes were 1179; and Sinus Tachycardia minutes were 36. V entricular Ectopy was 23, with 1 V-Pairs and 0 V-Runs. S upraVentricular Ectopy was 0, with 0 SV-Runs. Terri Maher MD Cardiology: R CEA Terri Maher MD Cardiology: S R on EKG April 03, 2021 d oubt his dizziness is related to bradycardia his hr is in 70s WILL GET TELE MONITOR TO DETERMINE IF THERE ARE SIGNIFICANT PAUSES LEADING TO THE DIZZINESS AND MAYNEED TO COME OFF BETABLOCKERS Terri Maher MD Cardiology: H is updated medication list for this problem includes: Aspirin Ec 81 Mg Oral Tablet Delayed Release (Aspirin) ..... One tab daily Metoprolol Succinate Er 25 Mg Oral Tablet Extended Release 24 Hour (Metoprolol succinate) ..... One tablet per day Hydrochlorothiazide 25mg Tab (Hydrochlorothiazide) ..... Take 1 tablet by mouth daily Enalapril 2.5mg Tab (Enalapril maleate) ..... Take 1 tablet by mouth twice daily Terri Maher MD Cardiology: f ollowed with Dr. Paiz [facility] 05/2018 Conclusions: 1 . 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 2 . <50% stenosis of the right ICA. 3 . Vertebral flow is antegrade bilaterally. Terri Maher MD Cardiology:unclear w hether his sx are related to BP or coratid disease. recommend he get CTA done. arrange for CTA carotid [place] [facility] check heart monitor evaluate for bradycardia and pauses Terri Maher MD Cardiology follow up : N egative SONAL workup. Terri Maher MD Cardiology follow up :SR on EKLG Terri Maher MD Cardiology follow up :followed w ith Dr. Paiz [facility] Terri Maher MD Cardiology follow up :RCEA Nikky Maher MD Cardiology follow up : P rior Hx. PCI stent RCA x 2 LIANE on 8/30/18. Needs DAPT until 2018. C hecked carotids. Abnormal. Follows with Dr. Paiz. Terri Maher MD Cardiology follow up :Home BPs reviewed, overall well controlled B P today: 134/80 P rior BP: 160/85 (06/27/2020) Labs Reviewed: C hol: 124 (12/19/2018) HDL: 38 (12/19/2018) & #13;His updated medication list for this problem includes: Aspirin Ec 81 Mg Oral Tablet Delayed Release (Aspirin) ..... One tab daily Metoprolol Succinate Er 25 Mg Oral Tablet Extended Release 24 Hour (Metoprolol succinate) ..... One tablet per day Hydrochlorothiazide 25mg Tab (Hydrochlorothiazide) ..... Take 1 tablet by mouth daily Enalapril 2.5mg Tab (Enalapril maleate) ..... Take 1 tablet by mouth once a day Terri Maher MD Cardiology follow up :There is non-specific thickening of the mitral valve leaflets. Mild to moderate mitral valve regurgitation. Check echo and evaluate for progression of MR, may need to have BARBARA done. Terri Maher MD Cardiology follow up :CHOL: 124 (12/19/2018) HDL: 38 (12/19/2018) H is updated medication list for this problem includes: Atorvastatin 80mg Tab (Atorvastatin calcium) ..... Take 1 tablet by mouth once daily Terri Maher MD Cardiology follow up : B P today: 160/85 P rior BP: 133/71 (12/26/2019) Labs Reviewed: C hol: 124 (12/19/2018) HDL: 38 (12/19/2018) His updated medication list for this problem includes: Aspirin Ec 81 Mg Oral Tablet Delayed Release (Aspirin) ..... One tab daily Metoprolol Succinate Er 25 Mg Oral Tablet Extended Release 24 Hour (Metoprolol succinate) ..... One tablet per day Hydrochlorothiazide 25mg Tab (Hydrochlorothiazide) ..... Take 1 tablet by mouth daily Enalapril 2.5mg Tab (Enalapril maleate) ..... Take 1 tablet by mouth once a day Terri Maher MD Cardiology follow up :HIRO grover with [facility] for LICA. Terri Maher MD Cardiology follow up : P rior Hx. PCI stent RCA x 2 LIANE on 04/20/18. Needs DAPT until 2018. C hecked carotids. Abnormal. Follows with Dr. Paiz. Terri Maher MD Cardiology 6 month f/up Mj byers MD Cardiology 6 month f/up Mj byers MD Cardiology 6 month f/up Mj byers MD Cardiology 6 month f/up Mj byers MD [facility] hospital follow up : L DL 70 in 11/2018, at [facility]. Continue statin Yani Oliveira NP [facility] hospital follow up : 3 0 day monitor showed SR, avg. HR 78. Off metoprolol. Yani Oliveira NP [facility] follow up : L greater than Althea Paiz at [place]. 06/15/18 carotid U/S: 1 . 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 2 . <50% stenosis of the right ICA. 3 . Vertebral flow is antegrade bilaterally. Yani Oliveira NP [facility] hospital follow up : B P today: 128/70 P rior BP: 130/70 (12/15/2018) The following medications were removed from the medication list: Metoprolol Tartrate 25 Mg Tabs (Metoprolol tartrate) ..... Take 1 tablet by mouth twice a day His updated medication list for this problem includes: Hydrochlorothiazide 25mg Tab (Hydrochlorothiazide) ..... Take 1 tablet by mouth daily Enalapril 2.5mg Tab (Enalapril maleate) ..... Take 1 tablet by mouth twice a day Aspirin Ec 81 Mg Oral Tablet Delayed Release (Aspirin) ..... One tab daily Yani Oliveira NP Cardiology follow up : B P today: 130/70 P rior BP: 140/70 (09/13/2018) His updated medication list for this problem includes: Metoprolol Succinate Er 25 Mg Oral Tablet Extended Release 24 Hour (Metoprolol succinate) ..... One tablet per day Hydrochlorothiazide 25 Mg Oral Tablet (Hydrochlorothiazide) ..... One tablet daily Enalapril Maleate 2.5 Mg Oral Tablet (Enalapril maleate) ..... One tablet twice daily Aspirin Ec 81 Mg Oral Tablet Delayed Release (Aspirin) ..... One tab daily [facility] Cardiology follow up :Will order lipid panel. His updated medication list for this problem includes: Atorvastatin Calcium 80 Mg Oral Tablet (Atorvastatin calcium) ..... One tab once daily [facility] Cardiology follow up : N egative SONAL workup. [facility] Cardiology follow up [facility] Cardiology follow up :06/15/18 echo: 1 . Normal left ventricular systolic function. Normal left ventricular size. Normal left ventricular wall t hickness. There is E to A wave reversal consistent with impaired LV relaxation. Left ventricular e jection fraction is estimated at 55 %. 2 . Normal right ventricular size. Normal right ventricular systolic function. 3 . There is non-specific thickening of the mitral valve leaflets. Mild to moderate mitral valve r egurgitation. 4 . There is trace physiologic tricuspid valve regurgitation [facility] Cardiology follow up : L greater than Althea Paiz at [place]. 06/15/18 carotid U/S: 1 . 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 2 . <50% stenosis of the right ICA. 3 . Vertebral flow is antegrade bilaterally. [facility] Cardiology:L greater than Althea Paiz at [place]. Terri Maher MD Cardiology:06/15/18 echo Conclusions: 1 . Normal left ventricular systolic function. Normal left ventricular size. Normal left ventricular wall t hickness. There is E to A wave reversal consistent with impaired LV relaxation. Left ventricular e jection fraction is estimated at 55 %. 2 . Normal right ventricular size. Normal right ventricular systolic function. 3 . There is non-specific thickening of the mitral valve leaflets. Mild to moderate mitral valve r egurgitation. 4 . There is trace physiologic tricuspid valve regurgitation. Terri Maher MD Cardiology:Negative SONAL workup. Terri Maher MD Cardiology: H is updated medication list for this problem includes: Atorvastatin Calcium 40 Mg Oral Tablet (Atorvastatin calcium) ..... Take 1 tablet at bedtime Terri Maher MD Cardiology:Prior Hx. PCI stent RCA x 2 LIANE on 04/20/18. Needs DAPT until 2018. Siria kapoor carotids. Abnormal. Follows with Dr. Paiz. Terri Maher MD Cardiology:Reduce be ta trevor usage to metoprolol XL 25 mg once daily. Terri Maher MD [facility] follow up :Sees urologist at [facility]. Terri Maher MD [facility] follow up :Will check home sleep study. Terri Maher MD [facility] follow up :Siria schofield carotids. Terri Maher MD [facility] follow up : H is updated medication list for this problem includes: Metoprolol Tartrate 25 Mg Oral Tablet (Metoprolol tartrate) ..... One tablet twice a day Hydrochlorothiazide 25 Mg Oral Tablet (Hydrochlorothiazide) ..... One tablet daily Enalapril Maleate 2.5 Mg Oral Tablet (Enalapril maleate) ..... One tablet twice daily Aspirin Ec 81 Mg Oral Tablet Delayed Release (Aspirin) ..... One tab daily Terri Maher MD Date Name Carotid Duplex Bilat eral PROTHROMBIN TIME WIT H INR LIPID PANEL CBC (INCLUDES DIFF/P LT) BASIC METABOLIC PANE L W/EGFR Sleep Study Home DLCO - 46066 FRC - 33697 FVC - 37177 Creatinine, Serum EKG CT Angio, Carotids CT Angio, Carotids CRP, high sensitivit y Lipoprotein (a) LIPID PANEL PROBNP, N TERMINAL Stress Exercise Card iolite Carotid Duplex Bilat eral Complete Echo DLCO - 69970 FRC - 73423 FVC - 62546 Sleep Study - split night Stress Regadenoson Complete Echo EKG Complete Echo Renal Artery Duplex Carotid Duplex Bilat eral RPM (remote patient monitoring) Complete Echo Carotid Duplex Bilat eral Complete Echo Creatinine, Serum CT Angio, Carotids Monitor - Telemetry (Mobile Cardiac) Stress Exercise Card iolite Complete Echo CBC (INCLUDES DIFF/P LT) LIPID PANEL COMPREHENSIVE METABO LIC PANEL, W/EGFR LIPID PANEL Mobile Cardiac Tele Complete Echo Sleep Study Home Carotid Duplex Bilat eral HISTORY OF PROCEDURES Procedure Date Procedure Name Provider Procedure Notes S tatus Complex e/m visit add on Terri Maher MD completed EKG Terri Maher MD compl eted Complex e/m visit add on Terri Maher MD completed EKG Terri Maher MD compl eted Spirometry Terri Maher MD compl eted FVC / MVV with bronchodilator - 07883 Terri Maher MD completed BLOOD COUNT HEMOGLOBIN Terri Maher MD completed SpO2 w/o 6min walk/titration Terri Maher MD completed SVC - 07865 Terri Maher MD comp leted DLCO - 16066 Terri Maher MD com pleted EKG Terri Maher MD compl eted EKG Terri Maher MD compl eted EKG Terri Maher MD compl eted EKG Terri Maher MD compl eted EKG Terri Maher MD compl eted EKG Terri Maher MD compl eted EKG Terri Maher MD compl eted EKG Terri Maher MD compl eted EKG Terri Maher MD compl eted EKG Terri Maher MD compl eted EKG Terri Maher MD compl eted EKG Terri Maher MD compl eted EKG Terri Maher MD compl eted Mobile Cardiac Telem etry - Tech Terri Maher MD completed Mobile Cardiac Telem etry - Prof Terri Maher MD completed EKG Terri Maher MD compl eted Mobile Cardiac Telem etry - Tech Terri Maher MD completed Mobile Cardiac Telem etry - Prof Terri Maher MD completed EKG Terri Maher MD compl eted
--- OUTSIDE RECORDS SUMMARY | 2024-09-17 08:57 | XMS_ITS | Referral Summary ---
Author Organization [facility] [address] Address [address] [place] [address] Care Team Providers Care Certification And Selection Specialist Name Role Phone Josef Encinas DO Primary Care Provider [phone] Jaylon De Los Santos MD Unavailable [phone] Allergies No known active allergies Medications hydroCHLOROthia zide (HYDRODIURIL) 25 mg tablet Take 25 mg by mouth daily. Active omeprazole (PriLOSEC) 20 mg capsule Take 20 mg by mouth daily. Active cyanocobalamin, vitamin B-12, (VITAMIN B-12 ORAL) Take 1,000 mcg by mouth daily. Active cholecalciferol (VITAMIN D3) 1,000 unit capsule Take 1,000 Units by mouth daily. Active atorvastatin (LIPITOR) 80 mg tabletIndicatio ns:myocardial infarction prevention Take 1 tablet (80 mg total) by mouth nightly. 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 Overview (07/22/2021): Added automatically from request for surgery [id number] Encounter for surgical after care following surgery on the circulatory system 11/03/2020 Bilateral carotid artery stenosis 11/02/2019 Fever 04/21/2018 STEMI (ST elevation myocardial infarction) 04/20 Overview (04/20/2018): Added automatically from request for surgery [id number] Hypertension 04/20/2018 Lipid disorder 04/20/2018 Chest pain on breathing 04/20/2018 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 Never 08/24/2021 Average Number of Drinks Not on file 022 Frequency of Binge Drinking Not on file 10/2021 Overall Financial Resource Strain (CARDIA) Answe r Date Recorded How hard is it for you to pa y for the very basics like food, housing, medical care, and heating? Not hard at all 05/28/2021 Hunger Vital Sign Answer Date Recorded Within the past 12 months, y ou worried that your food would run out before you got the money to buy more. Never true 05/28/20 21 Within the past 12 months, t he food you bought just didn't last and you didn't have money to get more. Never true 05/28/2021 PRAPARE - Transportation Answer Date Re corded In the past 12 months, has l ack of transportation kept you from medical appointments or from getting medications? No 02/2021 In the past 12 months, has l ack of transportation kept you from meetings, work, or from getting things needed for daily living? No 05/28/2021 Personal Safety Answer Date Recorded Have you ever been in or are you currently in a harmful physical or emotional relationship or is someone making you feel afraid or unsafe? 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 Gender Identity Not on file Sexual Orientation Not on file Last Filed Vital Signs Vital Sign Reading Time Taken Comments Blood Pressure 146/54 08/26/2023 12:55 AM METEOROLOGICAL EQUIPMENT REPAIRER Pulse 80 08/26/2023 12:55 AM METEOROLOGICAL EQUIPMENT REPAIRER Temperature 36.6 ??C (97.8 ??F) 08/25/2023 9:56 PM CS T Respiratory Rate 26 08/26/2023 12:55 AM METEOROLOGICAL EQUIPMENT REPAIRER Oxygen Saturation 94% 08/26/2023 12:55 AM METEOROLOGICAL EQUIPMENT REPAIRER Inhaled Oxygen Concentration - - Weight 108.9 kg (240 lb) 08/25/2023 9:55 PM METEOROLOGICAL EQUIPMENT REPAIRER Height 167.6 cm (5' 6 ) 08/25/2023 9:55 PM METEOROLOGICAL EQUIPMENT REPAIRER Body Mass Index 38.74 08/25/2023 9:55 PM METEOROLOGICAL EQUIPMENT REPAIRER Plan of Treatment Not on file Medical Devices Implanted Type Area Stores Naval Device Identifier Shelf Expiration Date Model / Serial / Lot [employer] [id number] Synergy 2.5mm 20mm 144cm Radiopaque 1 Access Port Inflation Lumen - [id number] Implanted:Qty: 1 on 04/20/2018 by Terri Maher MD at [facility] [employer] 11/08/2018 [id number] 250 / / [id number] [employer] [id number] Synergy 2.5mm 12mm 144cm Radiopaque 1 Access Port Inflation Lumen - [id number] Implanted:Qty: 1 on 04/20/2018 by Terri Maher MD at [facility] [employer] 10/24/2018 [id number] 250 / / [id number] [facility] [id number] Angio-Seal Vip Bondek-Plus 6fr .035in 70cm Hemostatic Latex Free - [id number] Implanted:Qty: 1 on 04/20/[facility] [place] 01/19/2019 [id number] / / [id number] [employer] [id number] Acculink 7-10mm 40mm 132cm Self Expandable Rapid Exchange Low - [id number] Implanted:Qty: 1 on 05/27/2021 by Jakob Kam MD at [facility] [employer] 11/19/2022 [id number] / / [id number] [employer] [place] [id number] Device Closure Angio-Seal Vip Bondek-Plus Polyglyd L70 Cm Od6 Fr Odsec.035 In Vascular - [id number] Implanted:Qty: 1 on 05/27/2021 by Jakob Kam MD at [facility] 01/19/2022 [id number] / / [id number] [facility] [id number] Synergy Xd Monorail 4.5mm 12mm 144cm Delivery System 1 Access - [id number] Implanted:Qty: 1 on 08/26/2021 by Jakob Kam MD at [facility] [employer] [facility] 01/19/2023 [id number] 450 / / [employer] [place] [id number] Device Closure Angio-Seal Vip Bondek-Plus Polyglyd L70 Cm Od6 Fr Odsec.035 In Vascular - [id number] Implanted:Qty: 1 on 08/26/2021 by Jakob Kam MD at [facility] 04/21/2022 [id number] / / Insurance [facility] MDCR HMO REF [facility] MEDICARE Address: [facility] [address] [place] [id number] [place], [place] [address]R HMO REF [facility] MEDICARE Address: [address] [address] [place] [address] R HMO REF [facility] MEDICARE Address: [facility] [address] [place] [address] Advance Directives For more information, please contact: [phone] * Full Code (Latest Code Status on File) Date Activated Date Inactivated Comments 08/26/2021 8:58 PM 08/27/2021 7:20 PM * Full Code Date Activated Date Inactivated Comments 05/27/2021 1:36 PM 05/28/2021 11:59 PM * Full Code Date Activated Date Inactivated Comments 04/20/2018 10:25 PM 04/23/2018 1:33 PM * Full Code Date Activated Date Inactivated Comments 04/20/2018 7:58 PM 04/20/2018 10:25 PM Care Teams Certification And Selection Specialist Relationship Specialty Start Date End Date Josef Encinas DO PCP - General 03/12/14 Jaylon De Los Santos MD Consulting Physician Cardiology 04/23/18
--- OUTSIDE RECORDS SUMMARY | 2024-09-17 08:57 | XMS_ITS | Clinical Summary ---
Author Organization [facility] [address] Address [address] [place] [address] Care Team Providers Care Holistic Health Practitioner Name Role Phone Josef Encinas DO Primary Care Provider [phone] Jaylon De Los Santos MD Unavailable [phone] Allergies No known active allergies Medications [...] (07/22/2021): Added automatically from request for surgery [id number] Encounter for surgical after care following surgery on the circulatory system 11/03/2020 Bilateral carotid artery stenosis 11/02/2019 Fever 04/21/2018 STEMI (ST elevation myocardial infarction) 04/20 Overview (04/20/2018): Added automatically from request for surgery [id number] Hypertension 04/20/2018 Lipid disorder 04/20/2018 Chest pain on breathing 04/20/2018 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 04/20/2018 Surgical History Surgery Date Site/Laterality Comments KNEE SURGERY Bilateral replacement WRIST SURGERY Wrist Surgery - (Added by TW Conv) SHOULDER SURGERY Shoulder Surgery - (Added by TW Conv) UT APPENDECTOMY Appendectomy - (Added by TW Conv) CAROTID ENARTERECTOMYY Right CAROTID STENT Left Medical History Medical History Date Comments Hypertension Hyperlipidemia Sleep apnea repeat test show ed negative results CAD (coronary artery disease) DC (myocardial infarction) (HCC) Carotid artery disease (HCC) BPH (benign prostatic hyperplasia) Family History Medical History Relation Name Comments Hypertension Father Diabetes Mother Relation Name Status Comments Father Mother Social History Tobacco Use Types Packs/Day Years Used Date Smoking Tobacco: Former Cigarettes 1.5 20 1 - 1992 Smokeless Tobacco: Never Alcohol Use [...] on file 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 Gender Identity Not on file Sexual Orientation Not on file Obstetrics History Last Filed Vital Signs Vital Sign Reading Time Taken Comments Blood Pressure 146/54 08/26/2023 12:55 AM WINDOWS SERVER ENGINEER Pulse 80 08/26/2023 12:55 AM WINDOWS SERVER ENGINEER Temperature 36.6 ??C (97.8 ??F) 08/25/2023 9:56 PM CS T Respiratory Rate 26 08/26/2023 12:55 AM WINDOWS SERVER ENGINEER Oxygen Saturation 94% 08/26/2023 12:55 AM WINDOWS SERVER ENGINEER Inhaled Oxygen Concentration - - Weight 108.9 kg (240 lb) 08/25/2023 9:55 PM WINDOWS SERVER ENGINEER Height 167.6 cm (5' 6 ) 08/25/2023 9:55 PM WINDOWS SERVER ENGINEER Body Mass Index 38.74 08/25/2023 9:55 PM WINDOWS SERVER ENGINEER Plan of Treatment Health Maintenance Due Date Last Done Comments Colon Cancer Screening-Colonoscopy 1950 Depression Screening 1950 Hepatitis C Screening 1950 Hepatitis B Screening 1968 Abdominal Aortic Aneurysm (A AA) Screen 12/08/2015 Well Visit 65+ 12/08/2015 Pneumococcal vaccine 65+ (2 of 2 - PPSV23 or PCV20) 05/28/2019 05/28/2018 Fall Risk Assessment 08/27/2022 08/27/2021 Influenza Vaccine (#1) 2024 9, 05/28/2018, 05/09/2017, Additional history exists DTaP/Tdap/Td Vaccine (2 - Td or Tdap) 05/14/2024 05/14/2014 Zoster Vaccine Completed 06/12/2019, 04/13/2019 Medical Devices Implanted Type Area Engineering Operations Leader Device Identifier Shelf Expiration Date Model / Serial / Lot [employer] [id number] Synergy 2.5mm 20mm 144cm Radiopaque 1 Access Port Inflation Lumen - [id number] Implanted:Qty: 1 on 04/20/2018 by Terri Maher MD at [facility] [employer] [place] 11/08/2018 [id number] 250 / / [id number] [employer] [place] [id number] Synergy 2.5mm 12mm 144cm Radiopaque 1 Access Port Inflation Lumen - [id number] Implanted:Qty: 1 on 04/20/2018 by Terri Maher MD at [facility] [employer] [place] 10/24/2018 [id number] 250 / / [id number] [employer] [place] [id number] Angio-Seal Vip Bondek-Plus 6fr .035in 70cm Hemostatic Latex Free - [id number] Implanted:Qty: 1 on 04/20/2018 by Terri Maher MD at [facility] [employer] [place] 01/19/2019 [id number] / / [id number] [employer] [id number] Acculink 7-10mm 40mm 132cm Self Expandable Rapid Exchange Low - [id number] Implanted:Qty: 1 on 05/27/2021 by Jakob Kam MD at [facility] [employer] 11/19/2022 [id number] / / [id number] [employer] [place] [id number] Device Closure Angio-Seal Vip Bondek-Plus Polyglyd L70 Cm Od6 Fr Odsec.035 In Vascular - [id number] Implanted:Qty: 1 on 05/27/2021 by Jakob Kam MD at [facility] [employer] [place] 01/19/2022 [id number] / / [id number] [employer] [id number] Synergy Xd Monorail 4.5mm 12mm 144cm Delivery System 1 Access - [id number] Implanted:Qty: 1 on 08/26/2021 by Jakob Kam MD at [facility] [place] 01/19/2023 [id number] 450 / / [employer] [place] [id number] Device Closure Angio-Seal Vip Bondek-Plus Polyglyd L70 Cm Od6 Fr Odsec.035 In Vascular - [id number] Implanted:Qty: 1 on 08/26/2021 by Jakob Kam MD at [facility] 04/21/2022 [id number] / / Insurance R HMO REF Member Subscriber Plan / Payer (Ef fective 2017-Present) Name:Zander Meza Relation to Subscriber:Self Name:Zander Meza Payer ID:[id number] (NAIC) Type:[facility] MEDIC[facility] Address: [place] [id number] R HMO REF [employer] MDCR HMO REF Advance Directives For more information, please contact: [phone] * Full Code (Latest Code Status on File) Date Activated Date Inactivated Comments 08/26/2021 8:58 PM 08/27/2021 7:20 PM * Full Code Date Activated Date Inactivated Comments 05/27/2021 1:36 PM 05/28/2021 11:59 PM * Full Code Date Activated Date Inactivated Comments 04/20/2018 10:25 PM 04/23/2018 1:33 PM * Full Code Date Activated Date Inactivated Comments 04/20/2018 7:58 PM 04/20/2018 10:25 PM Care Teams Holistic Health Practitioner Relationship Specialty Start Date End Date Josef Encinas DO PCP - General 03/12/14 Jaylon De Los Santos MD Consulting Physician Cardiology 04/23/18
--- OUTSIDE RECORDS SUMMARY | 2024-09-17 08:57 | XMS_ITS | Referral Summary ---
Author Organization [facility] Address [address] [place] [address] Care Team Providers Care Failure Analysis Engineer Name Role Phone Unavailable Primary Care Provider Unavailabl e Source Comments [facility],non-owned Affiliates and Associated Physician Practices is amultiple site organization consisting of ambulatory clinics and hospital sitesin [place], [place], [place] and [place]. This disclosure is being madepursuant to the Care Everywhere program and may not contain all information available regarding this patient. Last updated 18.[facility] [address] Allergies No known active allergies Social History Tobacco Use Types Packs/Day Years Used Date Smoking Tobacco: Never Assessed Sex and Gender Information Value Date Recorded Sex Assigned at Not on file Gender Identity Not on file Sexual Orientation Not on file Plan of Treatment Not on file Administered Medications
--- OUTSIDE RECORDS SUMMARY | 2024-09-17 08:57 | XMS_ITS | Patient Health Summary ---
Author Organization [facility] Address [address] [place] [address] Care Team Providers Care Elevator Constructor Supervisor Name Role Phone Unavailable Primary Care Provider Unavailabl e Note from [facility],non-owned Affiliates and Associated Physician Practices is amultiple site organization consisting of ambulatory clinics and hospital sitesin [place], [place], [place] and [place]. This disclosure is being madepursuant to the Care Everywhere program and may not contain all information available regarding this patient. Last updated 18.[facility] [employer] Allergies No known active allergies Social History Tobacco Use Types Packs/Day Years Used Date Smoking Tobacco: Never Assessed Sex and Gender Information Value Date Recorded Sex Assigned at Not on file Gender Identity Not on file Sexual Orientation Not on file Procedures * SKIN TEST PPD - POINT OF CARE(Performed 10/07/2017) Performed for PPD screening test Results * SKIN TEST PPD - POINT OF CARE (10/07/2017) PPD 0mm Comment:No induration. Paper signed, scanned into chart, and returned to patient Other MISCELLANEOUS SAMPLE S / Unknown 10/07/2017 Ivonne Aguirre RACE RELATIONS ADVISER-EMERGENCY VEHICLE DISPATCHER LAB - POINT OF CARE ORDERABLES
--- OUTSIDE RECORDS SUMMARY | 2024-09-17 08:57 | XMS_ITS | Encounter Summary ---
Author Organization [facility] Address [address] [facility] [address] Phone Care Team Providers Care Paper Reel Operator Name Role Phone Josef Encinas DO Primary Care Provider [phone] Jaylon De Los Santos MD Unavailable [phone] Encounter Details Date Type Department Care Team (Latest Contact Info) Description 04/26/2017 Orders Only [facility] CONVERSION Scanning, Provider Social History Tobacco Use Types Packs/Day Years Used Date Smoking Tobacco: Never Assessed Sex and Gender Information Value Date Recorded Sex Assigned at Not on file Legal 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 Gender Identity Not on file Sexual Orientation Not on file documented as of this encounter Plan of Treatment Not on file documented as of this encounter Procedures Procedure Name Priority Date/Time Associated Diagnosis Comments VASCULAR LABORATORY REPORT 04/26/2017 8:39 AM CDT documented in this encounter Results * VASCULAR LABORATORY REPORT (04/26/2017 8:39 AM CDT) Anatomical Region Laterality Modality Ultrasound us Provider Scanning CV VASCULAR PROCEDURES Final R esult documented in this encounter Visit Diagnoses Not on filedocumented in this encounter Additional Health Concerns Infection Onset Date Last Indicated Resolved Time COVID: Suspected 08/25/2023 08/25/2023 08/25/2023 11:16 PM COLD REDUCTION ROLLER documented as of this encounter Care Teams Paper Reel Operator Relationship Specialty Start Date End Date Josef Encinas DO PCP - General 03/12/14 Jaylon De Los Santos MD Consulting Physician Cardiology 04/23/18 documented as of this encounter
--- OUTSIDE RECORDS SUMMARY | 2024-09-17 08:57 | XMS_ITS | Clinical Summary ---
Author Organization [facility] Address [address] [place] [address] Care Team Providers Care Fabrics And Material Cutter Name Role Phone Unavailable Primary Care Provider Unavailabl e Source Comments [facility],non-owned Affiliates and Associated Physician Practices is amultiple site organization consisting of ambulatory clinics and hospital sitesin [place], [place], [place] and [place]. This disclosure is being madepursuant to the Care Everywhere program and may not contain all information available regarding this patient. Last updated 18.[facility] Allergies No known active allergies Social History Tobacco Use Types Packs/Day Years Used Date Smoking Tobacco: Never Assessed Sex and Gender Information Value Date Recorded Sex Assigned at Not on file Gender Identity Not on file Sexual Orientation Not on file Plan of Treatment Health Maintenance Due Date Last Done Comments COLOGUARD (AGES 45-75) - COL ON CA SCREENING 1950 COLON MONITORING 1950 COLONOSCOPY - COLON CA SCREENING 1950 CT COLONOGRAPHY - COLON CA SCREENING 1950 Colorectal Cancer Screening 1950 FIT - COLON CA SCREENING 1950 FLEX SIG - COLON CA SCREENING 1950 LIPID TESTING 1950 HEPATITIS C SCREENING 12/02/1968 DTAP/TDAP/TD VACCINES (1 - Tdap) 1969 PNEUMOCOCCAL VACCINE 50+ (1 of 1 - PCV) 2000 ZOSTER VACCINE (1 of 2) 2000 COVID-19 VACCINE ( - 2023-2 5 season) 2024 INFLUENZA VACCINE (#1) 2024 DEPRESSION SCREENING 08/22/2024 Respiratory Syncytial Virus (RSV) Vaccine Pt: or over 60 yrs (1 - 1-dose 75+ series) 2025 HEPATITIS B VACCINE Aged Out No longe r eligible based on patient's age to complete this topic HIB VACCINE Aged Out No longer eligi ble based on patient's age to complete this topic HPV VACCINE Aged Out No longer eligi ble based on patient's age to complete this topic MENINGOCOCCAL (Group B) VACCINE Aged Out No longer eligible based on patient's age to complete this topic MENINGOCOCCAL VACCINE Aged Out No lia isiah eligible based on patient's age to complete this topic
[2024-09-17 16:30] LABS: Basophils Absolute Auto 0.1 K/mm3 (0.0-0.1); Basophils Percent Auto 0.6 % (0.2-1.2); Eosinophils Absolute Auto 0.2 K/mm3 (0-0.3); Eosinophils Percent Auto 1.8 % (0-4.4); Hematocrit 46.7 % (42.0-52.0); Immature Granulocyte Absolute 0.05 K/mm3 (0.00-0.031); Immature Granulocyte Percent A 0.6 % (0-0.5); Lymphocytes Absolute Auto 2.01 K/mm3 (0.9-3.2); Lymphocytes Percent Auto 22.9 % (18.3-44.2); Mean Corpuscular Hemoglobin 26.4 pg (26-34); Mean Corpuscular Volume 87.9 fl (80-100); Mean Platelet Volume 10.4 fl (7.4-10.4); Monocytes Absolute Auto 0.8 K/mm3 (0.1-0.6); Monocytes Percent Auto 9.6 % (2.6-8.5); Neutrophils Absolute Auto 5.7 K/mm3 (1.3-6.7); Neutrophils Percent Auto 64.5 % (45.5-73.1); Platelet Count Result 217 k/mm3 (150-375); Red Blood Count 5.31 M/mm3 (4.6-6.20); Red Cell Distribution Width 14.8 % (11.5-14.5); White Blood Count 8.8 K/mm3 (4.5-10.0)
[2024-09-17 16:36] LABS: Alanine Aminotransferase 36 U/L (6-50); Albumin Level 4.2 g/dL (3.5-5.1); Alkaline Phosphatase 81 U/L (38-126); Anion Gap 8 mmol/L (4-12); Aspartate Amino Transferase 74 U/L (17-59); Bilirubin,Total 0.5 mg/dL (0.2-1.3); Blood Urea Nitrogen 29 mg/dL (9-20); Calcium 9.5 mg/dL (8.4-10.2); Carbon Dioxide 32 mmol/L (22-30); Chloride 98 mmol/L (98-107); Cholesterol 126 mg/dL (0-200); Estimated Glomerular Filt Rate 58; Glucose 95 mg/dL (65-110); HDL Direct 39 mg/dL; Sodium 138 mmol/L (137-145); Triglycerides 86 mg/dL (<150)
[2024-09-17 16:48] LABS: LDL Cholesterol Direct 62 mg/dL
[2024-09-17 16:56] LABS: Creatinine Urine 51.2 mg/dL
[2024-09-17 17:07] LABS: Prostate Specific Antigen 0.7 ng/mL (< OR = 4.0)
[2024-09-17 18:54] LABS: MALB Creatinine Ratio < 11.7 mg/g (0-30); Microalbumin Urine Random < 6.0 mg/L (0-16.7)
== END 2024-09-17 08:38 | disposition home or self-care (01) ==
LOC: ANHGOSHLAB 08:39
PROVIDERS: PCP Internal Medicine; Visit Provider Nurse Practitioner
DX: E78.5 Hyperlipidemia, unspecified (principal); E11.9 Type 2 diabetes mellitus without complications; Z12.5 Encounter for screening for malignant neoplasm of prostate
CPT/HCPCS: 36415; 80053; 80061; 82043; 83036; 84153; 85025; G0103

== ENCOUNTER 2024-10-05 11:31 | Emergency (ER) | payer MEDICARE, SELFPAY ==
--- NOTE | ~2024-10-05 | XR_ITS ---
EXAMINATION: XR hand RT min 3V DATE: 10/05/2024 11:50 INDICATION: Dorsal right hand pain. TECHNIQUE: 3 views of right hand were obtained. COMPARISON: Right hand radiographs 12/04/2007 FINDINGS: Alignment is normal. No fracture. There is mild osteoarthritis of first carpometacarpal manuel nt and some of the metacarpophalangeal joints and interphalangeal joints. There is moderate osteoarth ritis of third metacarpophalangeal joint, severe osteoarthritis of first interphalangeal joint and se cond distal interphalangeal joint, and moderate osteoarthritis of third distal interphalangeal joint. There are periarticular calcifications at the second, third, and fourth distal interphalangeal joint s. IMPRESSION: 1. Polyarticular osteoarthritis. Reviewed, dictated and finalized at location A. R BUILDER
[2024-10-05 11:40] VITALS: BP 152/64; PULSE 65; RESP 16; TEMP 36.1; O2SAT 99
--- NOTE | 2024-10-05 11:47 | ED_ITS ---
HPI - Extremity Injury (Upper) General Chief Complaint: Extremity Injury, Upper Stated Complaint: R HAND INJURY Time Seen by Provider: 10/05/24 11:47 Source: patient Mode of arrival: ambulatory Limitations: no limitations History of Present Illness HPI narrative: 73-year-old male presents with abrasion to dorsal aspect of right hand. Yesterday was using a drill and drill kicked back and pedal hit patient to right hand. Patient has erythema and swelling with warmth surrounding abrasion. Tetanus not up-to-date. CMS intact to right hand. All systems reviewed and negative except as noted above. Related Data Home Medications ?Medication ?Instructions ?Recorded ?Confirmed ?Last Taken ?Type aspirin 81 mg tablet,delayed 81 mg PO DAILY 07/24/19 09/27/24 Unknown History release (Adult Low Dose Aspirin) clopidogrel 75 mg tablet 75 mg PO DAILY 03/18/22 09/27/24 Unknown History cholecalciferol (vitamin D3) 25 25 mcg PO DAILY 09/16/22 09/27/24 Unknown History mcg (1,000 unit) capsule mecobalamin (vitamin B12) 5,000 5,000 mcg PO DAILY 09/16/22 09/27/24 Unknown History mcg disintegrating tablet enalapril maleate 5 mg tablet 10 mg PO BID 11/22/22 09/27/24 Unknown History pantoprazole 20 mg tablet,delayed 20 mg PO DAILY 11/16/23 09/27/24 Unknown History release furosemide 20 mg tablet 20 mg PO DAILY 12/28/23 09/27/24 Unknown History metoprolol succinate 25 mg 25 mg PO DAILY 03/01/24 09/27/24 Unknown History tablet,extended release 24 hr Allergies Allergy/AdvReac Type Severity Reaction Status Date / Time No Known Allergies Allergy Verified 10/05/24 11:33 Review of Systems Review of Systems: CONSTITUTIONAL: Denies fever, chills, or sweats. EYES: Denies visual changes, redness, or discharge. ENT: Denies rhinorrhea, congestion, sore throat, or otalgia. CARDIOVASCULAR: Denies chest pain, palpitations, or edema. RESPIRATORY: Denies cough or dyspnea. GASTROINTESTINAL: Denies abdominal pain, nausea, vomiting, or diarrhea. GENITOURINARY: Denies dysuria or hematuria. SKIN: Denies rash or itching. MUSCULOSKELETAL: Denies back pain, joint pain, or myalgia. Reports pain and swelling to right hand. NEUROLOGIC: Denies headache, numbness, or weakness. PSYCHIATRIC: Denies anxiety or depression. All other systems reviewed are negative, except as documented in HPI. [facility] Past Medical History Medical History (Reviewed 12/28/23 @ 13:03 by Elizabeth Funk [facility]) Back pain BPH (benign prostatic hyperplasia) CAD (coronary artery disease) Chronic GERD COPD (chronic obstructive pulmonary disease) Cough Erectile dysfunction H/O carotid atherosclerosis History of ST elevation myocardial infarction (STEMI) Hyperlipidemia Hypertension Obesity Tinnitus Type 2 diabetes mellitus Family History Family History (Reviewed 09/27/24 @ 09:11 by Nuria Marti [facility]) Father Diabetes mellitus Hypertension Mother Diabetes mellitus Social History Social History (Updated 09/27/24 @ 09:12 by Nuria Marti [facility]) Smoking packs per day: 2 Smoking cigarettes per day: 40.0 Years smoked: 25 Smoking pack-years: 50.00 Smoking status: Former smoker Tobacco type: cigarettes Second hand tobacco smoke exposure: Yes Smoking end date: 08/22/92 Alcohol intake: never Do You Feel Safe in your Home?: Yes Lack of Transportation: No Lack of Food: Never True Current Housing: I Have Housing Concerned About Future Housing: No Difficulty Paying Gas/Electric Bills: No Difficulty Paying for Meds: No Currently Unemployed: No Education: High School Diploma/GED Difficulty w/ Childcare or Family Care: No Gender identity (if verbalized by the patient): Male Comments At time of signature, agree with nursing past medical, surgical, social and family history. There is no relevant family history pertinent to the presenting complaint. Exam Narrative: GENERAL: This is a well-nourished, well-developed patient, in no apparent distress. HEAD: normocephalic, atraumatic. EYES: PERRL. Sclera clear/white. Vision is grossly intact. EARS: External ears normal NOSE: External nose normal NECK: Neck supple, non-tender without lymphadenopathy, masses or thyromegaly. CARDIOVASCULAR: Regular rate and rhythm without murmurs, gallops, or rubs. RESPIRATORY: Clear to auscultation. Breath sounds equal bilaterally. No wheezes, rales, or rhonchi. SKIN: warm, Dry, intact with no suspicious lesions or rash, good texture and turgor. NEURO: awake, alert, and oriented to person, place and time. There were no obvious focal neurologic abnormalities. EXTREMITIES: Tenderness to distal aspect of right 3rd metacarpal. Abrasion to dorsal aspect over the 3rd metacarpal with surrounding erythema and swelling. No fluctuance concerning for abscess. Bleeding controlled to abrasion. Abrasion is approximately 1 cm diameter. Range of motion and distal neurovascularly intact Course Course Level of Care: Express Care Visit Vital Signs Vital signs: Vital Signs Temperature 36.1 C L 10/05/24 11:40 Pulse Rate 65 10/05/24 11:40 Respiratory Rate 16 10/05/24 11:40 Blood Pressure 152/64 H 10/05/24 11:40 Pulse Oximetry 99 10/05/24 11:40 Temperature 36.1 C L 10/05/24 11:40 Pulse Rate 65 10/05/24 11:40 Respiratory Rate 16 10/05/24 11:40 Blood Pressure 152/64 H 10/05/24 11:40 Pulse Oximetry 99 10/05/24 11:40 Reviewed MDM - Extremity Injury (Upper) MDM Narrative Medical decision making narrative: X-ray of right hand negative for fracture. Discussed results with patient. CMS to right hand is intact. Abrasion cleaned with wound cleanser by RN and dressing placed. Patient updated on tetanus vaccine. Will prescribe antibiotic due to erythema and swelling concerning for infection. Patient agrees with plan of care. Please be advised this is a medical document. It is intended for cwrh-[id number] communication. It is written in medical language and may contain unfamiliar abbreviations or verbiage. Medical documents are intended to carry relevant information, facts as evident, and the clinical opinion of the practitioner at the time of the encounter. This report may have been done utilizing a voice recognition system. Attempts have been made to correct errors. However, there may be uncorrected grammatical, spelling, and recognition errors present. The file time of this note does not necessarily represent the time of service. Imaging Data My impression: Agree with radiologist Radiologist's impression: EXAMINATION: XR hand RT min 3V DATE: 10/05/2024 11:50 INDICATION: Dorsal right hand pain. TECHNIQUE: 3 views of right hand were obtained. COMPARISON: Right hand radiographs 12/04/2007 FINDINGS: Alignment is normal. No fracture. There is mild osteoarthritis of first carpometacarpal joint and some of the metacarpophalangeal joints and interphalangeal joints. There is moderate osteoarthritis of third metacarpophalangeal joint, severe osteoarthritis of first interphalangeal joint and second distal interphalangeal joint, and moderate osteoarthritis of third distal interphalangeal joint. There are periarticular calcifications at the second, third, and fourth distal interphalangeal joints. IMPRESSION: 1. Polyarticular osteoarthritis. Discharge Plan Discharge Clinical Impression: Abrasion of hand, right, infected Qualifiers: Encounter type: initial encounter Qualified Code(s): S60.511A - Abrasion of right hand, initial encounter Patient Disposition: Home, Self-Care Condition: Stable Instructions: Antibiotic Form, Abrasion (ED) Additional Instructions: The x-ray of your right hand was negative for fracture. Keep wound clean and dry. Wash with mild soap and water. Take antibiotic as prescribed to treat infection. Take Tylenol every 6-8 hours as needed for pain. Keep elevated when at rest. Follow-up with your doctor if pain and redness is not improving. Patient Language: Portuguese Prescriptions: New cephalexin 500 mg capsule 500 mg PO QID 7 Days Qty: 28 0RF No Action cholecalciferol (vitamin D3) 25 mcg (1,000 unit) capsule 25 mcg PO DAILY mecobalamin (vitamin B12) 5,000 mcg tablet,disintegrating 5,000 mcg PO DAILY enalapril maleate 5 mg tablet 10 mg PO BID albuterol sulfate 90 mcg/actuation HFA aerosol inhaler 1 inh inhalation Q4H PRN (Reason: shortness of breath or wheezing) Qty: 8.5 1RF aspirin [Adult Low Dose Aspirin] 81 mg tablet,delayed release (DR/EC) 81 mg PO DAILY clopidogrel 75 mg tablet 75 mg PO DAILY metoprolol succinate 25 mg tablet extended release 24 hr 25 mg PO DAILY pantoprazole 20 mg tablet,delayed release (DR/EC) 20 mg PO DAILY furosemide 20 mg tablet 20 mg PO DAILY Ozempic 0.25 mg or 0.5 mg (2 mg/3 mL) pen injector 0.25 mg subcut WEEKLY Qty: 3 0RF Rx Instructions: for 4 weeks hydrochlorothiazide 25 mg tablet 25 mg PO DAILY Qty: 100 1RF atorvastatin 80 mg tablet 80 mg PO DAILY Qty: 100 1RF Follow-up/Referrals: Josef Encinas DO [Primary Care Provider] - Time of Disposition: 12:20
[2024-10-05] MEDS: TETANUS/DIPHTHERIA TOXOIDS ADSORB 0.5 ML SYRINGE (*BKC) IM (11:51)
== END 2024-10-05 12:21 | disposition home or self-care (01) ==
PROVIDERS: Emergency Provider Nurse Practitioner Family; PCP Internal Medicine
DX: S60.511A Abrasion of right hand, initial encounter (principal); I25.10 Atherosclerotic heart disease of native coronary artery without angina pectoris; I10 Essential (primary) hypertension; E11.9 Type 2 diabetes mellitus without complications; J44.9 Chronic obstructive pulmonary disease, unspecified; I25.2 Old myocardial infarction; Z87.891 Personal history of nicotine dependence; Z23 Encounter for immunization; W22.8XXA Striking against or struck by other objects, initial encounter
CPT/HCPCS: 73130; 90471; 90714; 99213; G0463

== ENCOUNTER 2025-03-26 08:22 | Outpatient (CLI) | payer MEDICARE, SELFPAY ==
--- OUTSIDE RECORDS SUMMARY | 2025-03-26 08:24 | XMS_ITS | Encounter Summary ---
Author Organization [facility] Address [address] [facility] [place] [address] Phone Care Team Providers Care Local Sales Associate Name Role Phone Josef Encinas DO Primary Care Provider [phone] Jaylon De Los Santos MD Unavailable [phone] Encounter Details Date Type Department Care Team (Latest Contact Info) Description 04/26/2017 Orders Only [facility] CONVERSION Scanning, Provider Social History Tobacco Use Types Packs/Day Years Used Date Smoking Tobacco: Never Assessed Sex and Gender Information Value Date Recorded Sex Assigned at Not on file Legal Sex Male 10:36 AM NIGHT BAKER Gender Identity Not on file Sexual Orientation [...] COVID: Suspected 08/25/2023 08/25/2023 08/25/2023 11:16 PM NIGHT BAKER documented as of this encounter Care Teams Local Sales Associate Relationship Specialty Start Date End Date Yablonsky, Josef B., DO PCP - General 03/12/14 Jaylon De Los Santos MD Consulting Physician Cardiology 04/23/18 documented as of this encounter
--- OUTSIDE RECORDS SUMMARY | 2025-03-26 08:24 | XMS_ITS | Clinical Summary ---
Author Organization [facility] Address [address] [place] [address] Care Team Providers Care Forms Analysis Manager Name Role Phone Unavailable Primary Care Provider Unavailabl e Source Comments [facility],non-owned Affiliates and Associated Physician Practices is amultiple site organization consisting of ambulatory clinics and hospital sitesin [place], [place], [place] and [place]. This disclosure is being madepursuant to the Care Everywhere program and may not contain all information available regarding this patient. 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
--- OUTSIDE RECORDS SUMMARY | 2025-03-26 08:24 | XMS_ITS | Referral Summary ---
Author Organization [facility] [address] Address [address] [place] [address] Care Team Providers Care Automatic Drill Operator Name Role Phone Josef Encinas DO Primary Care Provider [phone] Jaylon De Los Santos MD Unavailable [phone] Allergies No known active allergies Medications [...] (07/22/2021): Added automatically from request for surgery [id number] Encounter for surgical after care following surgery on the circulatory system 11/03/2020 Bilateral carotid artery stenosis 11/02/2019 Fever 04/21/2018 STEMI (ST elevation myocardial infarction) 04/20 Overview (04/20/2018): Added automatically from request for surgery [id number] Hypertension 04/20/2018 Lipid disorder 04/20/2018 Chest pain on breathing 04/20/2018 Coronary artery disease invo lving minto coronary artery with unstable angina pectoris 04/20/2018 Social History Tobacco Use Types Packs/Day Years Used Date Smoking Tobacco: Former Cigarettes 1.5 20 1 97 - 1992 Smokeless Tobacco: Never Alcohol Use [...] on file Legal Sex Male 10:36 AM CAREERS COUNSELLOR Gender Identity Not on file Sexual Orientation Not on file Last Filed Vital Signs Vital Sign Reading Time Taken Comments Blood Pressure 146/54 08/26/2023 12:55 AM CAREERS COUNSELLOR Pulse 80 08/26/2023 12:55 AM CAREERS COUNSELLOR Temperature 36.6 C (97.8 F) 08/25/2023 9:56 PM CAREERS COUNSELLOR Respiratory Rate 26 08/26/2023 12:55 AM CAREERS COUNSELLOR Oxygen Saturation 94% 08/26/2023 12:55 AM CAREERS COUNSELLOR Inhaled Oxygen Concentration - - Weight 108.9 kg (240 lb) 08/25/2023 9:55 PM CAREERS COUNSELLOR Height 167.6 cm (5' 6) 08/25/2023 9:55 PM CAREERS COUNSELLOR Body Mass Index 38.74 08/25/2023 9:55 PM CAREERS COUNSELLOR Plan of Treatment Not on file Medical Devices Implanted Type Area Cleaning Machine Operator Device Identifier Shelf Expiration Date Model / Serial / Lot [employer] [id number] Synergy 2.5mm 20mm 144cm Radiopaque 1 Access Port Inflation Lumen - [id number] Implanted:Qty: 1 on 04/20/2018 by Terri Maher MD at [facility] [employer] 11/08/2018 [id number] / / [id number] [employer] [id number] Synergy 2.5mm 12mm 144cm Radiopaque 1 Access Port Inflation Lumen - [id number] Implanted:Qty: 1 on 04/20/2018 by Terri Maher MD at [facility] [employer] 10/24/2018 [id number] 250 / / [id number] [facility] [id number] Angio-Seal Vip Bondek-Plus 6fr .035in 70cm Hemostatic Latex Free - [id number] Implanted:Qty: 1 on 04/20/2018 by Terri Maher MD at [facility] [place] 01/19/2019 [id number] / / [id number] [employer] [id number] Acculink 7-10mm 40mm 132cm Self Expandable Rapid Exchange Low - [id number] Implanted:Qty: 1 on 05/27/2021 by Jakob Kam MD at [facility] [employer] 11/19/2022 [id number] / / [id number] [employer] [place] [id number] Device Closure Angio-Seal Vip Bondek-Plus Polyglyd L70 Cm Od6 Fr Odsec.035 In Vascular - [id number] Implanted:Qty: 1 on 05/27/2021 by Jakob Kam MD at [facility] 01/19/2022 [id number] / / [id number] [employer] [place] [facility] [id number] Synergy Xd Monorail 4.5mm 12mm 144cm Delivery System 1 Access - [id number] Implanted:Qty: 1 on 08/26/2021 by Jakob Kam MD at [facility] 01/19/2023 [id number] / / [employer] [place] [id number] Device Closure Angio-Seal Vip Bondek-Plus Polyglyd L70 Cm Od6 Fr Odsec.035 In Vascular - [id number] Implanted:Qty: 1 on 08/26/2021 by Jakob Kam MD at [facility] 04/21/2022 [id number] / / Insurance [facility] MD[facility] HMO [place]F [address] [place], [place] [id number] HMO REF Advance Directives For more information, please contact: [phone] * Full Code (Latest Code Status on File) Date Activated Date Inactivated Comments 08/26/2021 8:58 PM 08/27/2021 7:20 PM * Full Code Date Activated Date Inactivated Comments 05/27/2021 1:36 PM 05/28/2021 11:59 PM * Full Code Date Activated Date Inactivated Comments 04/20/2018 10:25 PM 04/23/2018 1:33 PM * Full Code Date Activated Date Inactivated Comments 04/20/2018 7:58 PM 04/20/2018 10:25 PM Care Teams Automatic Drill Operator Relationship Specialty Start Date End Date Josef Encinas DO PCP - General 03/12/14 Jaylon De Los Santos MD Consulting Physician Cardiology 04/23/18
--- OUTSIDE RECORDS SUMMARY | 2025-03-26 08:24 | XMS_ITS | Clinical Summary ---
Author Organization [facility] [address] Address [address] [place] [address] Care Team Providers Care Front End Loader Operator Name Role Phone Josef Encinas DO Primary Care Provider [phone] Jaylon De Los Santos MD Unavailable [phone] Allergies No known active allergies Medications [...] (07/22/2021): Added automatically from request for surgery [id number] Encounter for surgical after care following surgery on the circulatory system 11/03/2020 Bilateral carotid artery stenosis 11/02/2019 Fever 04/21/2018 STEMI (ST elevation myocardial infarction) 04/20 Overview (04/20/2018): Added automatically from request for surgery [id number] Hypertension 04/20/2018 Lipid disorder 04/20/2018 Chest pain on breathing 04/20/2018 Coronary artery disease invo lving [place] coronary artery with unstable angina pectoris 04/20/2018 Surgical History Surgery Date Site/Laterality Comments KNEE SURGERY Bilateral replacement WRIST SURGERY Wrist Surgery - (Added by TW Conv) SHOULDER SURGERY Shoulder Surgery - (Added by TW Conv) OR APPENDECTOMY Appendectomy - (Added by TW Conv) CAROTID ENARTERECTOMYY Right CAROTID STENT Left Medical History Medical History Date Comments Hypertension Hyperlipidemia Sleep apnea repeat test show ed negative results CAD (coronary artery disease) [place] (myocardial infarction) (HCC) Carotid artery disease BPH (benign prostatic hyperplasia) Family History Medical [...] on file Legal Sex Male 10:36 AM COATER HELPER Gender Identity Not on file Sexual Orientation Not on file Obstetrics History Last Filed Vital Signs Vital Sign Reading Time Taken Comments Blood Pressure 146/54 08/26/2023 12:55 AM COATER HELPER Pulse 80 08/26/2023 12:55 AM COATER HELPER Temperature 36.6 C (97.8 F) 08/25/2023 9:56 PM COATER HELPER Respiratory Rate 26 08/26/2023 12:55 AM COATER HELPER Oxygen Saturation 94% 08/26/2023 12:55 AM COATER HELPER Inhaled Oxygen Concentration - - Weight 108.9 kg (240 lb) 08/25/2023 9:55 PM COATER HELPER Height 167.6 cm (5' 6) 08/25/2023 9:55 PM COATER HELPER Body Mass Index 38.74 08/25/2023 9:55 PM COATER HELPER Plan of Treatment Health Maintenance Due Date Last Done Comments Colon Cancer Screening-Colonoscopy 1950 Depression Screening 1950 Hepatitis C Screening 1950 Hepatitis B Screening 1968 Abdominal Aortic Aneurysm (A AA) Screen 12/08/2015 Well Visit 65+ 12/08/2015 Pneumococcal vaccine 65+ (2 of 2 - PPSV23) 05/28/2019 05/28/2018 Fall Risk Assessment 08/27/2022 08/27/2021 DTaP/Tdap/Td Vaccine (2 - Td or Tdap) 05/14/2024 05/14/2014 Influenza Vaccine (#1) 2025 9, 05/28/2018, 05/09/2017, Additional history exists Zoster Vaccine Completed 06/12/2019, 04/13/2019 Medical Devices Implanted Type Area Affirmative Action Officer Device Identifier Shelf Expiration Date Model / Serial / Lot [employer] [place] [id number] Synergy 2.5mm 20mm 144cm Radiopaque 1 Access Port Inflation Lumen - [id number] Implanted:Qty: 1 on 04/20/2018 by Terri Maher MD at [facility] [employer] [place] 11/08/2018 [id number] 250 / / [id number] [employer] [place] [id number] Synergy 2.5mm 12mm 144cm Radiopaque 1 Access Port Inflation Lumen - [id number] Implanted:Qty: 1 on 04/20/2018 by Terri Maher MD at [facility] [employer] [place] 10/24/2018 [id number] 250 / / [id number] [employer] [place] [id number] Angio-Seal Vip Bondek-Plus 6fr .035in 70cm Hemostatic Latex Free - [id number] Implanted:Qty: 1 on 04/20/2018 by Terri Maher MD at [facility] [employer] [place] 01/19/2019 [id number] / / [id number] [employer] [id number] Acculink 7-10mm 40mm 132cm Self Expandable Rapid Exchange Low - [id number] Implanted:Qty: 1 on 05/27/2021 by Jakob Kam MD at [facility] [employer] 11/19/2022 [id number] / / [id number] [employer] [place] [id number] Device Closure Angio-Seal Vip Bondek-Plus Polyglyd L70 Cm Od6 Fr Odsec.035 In Vascular - [id number] Implanted:Qty: 1 on 05/27/2021 by Jakob Kam MD at [facility] [employer] / [email or web address] [place] 01/19/2022 [id number] / / [id number] [employer] [place] [id number] Synergy Xd Monorail 4.5mm 12mm 144cm Delivery System 1 Access - [id number] Implanted:Qty: 1 on 08/26/2021 by Jakob Kam MD at [facility] [employer] [place] 01/19/2023 [id number] / / [employer] [place] [id number] Device Closure Angio-Seal Vip Bondek-Plus Polyglyd L70 Cm Od6 Fr Odsec.035 In Vascular - [id number] Implanted:Qty: 1 on 08/26/2021 by Jakob Kam MD at [facility] 04/21/2022 [id number] / / Insurance [facility] MED[facility] Address: [address] [address] [place] [phone] [facility] MEDIC[facility] Address: [address] [address] [place] [address] [facility] MEDIC[facility] Address: [address] [address] Advance Directives For more information, please contact: [phone] * Full Code (Latest Code Status on File) Date Activated Date Inactivated Comments 08/26/2021 8:58 PM 08/27/2021 7:20 PM * Full Code Date Activated Date Inactivated Comments 05/27/2021 1:36 PM 05/28/2021 11:59 PM * Full Code Date Activated Date Inactivated Comments 04/20/2018 10:25 PM 04/23/2018 1:33 PM * Full Code Date Activated Date Inactivated Comments 04/20/2018 7:58 PM 04/20/2018 10:25 PM Care Teams Front End Loader Operator Relationship Specialty Start Date End Date Josef Encinas DO PCP - General 03/12/14 Jaylon De Los Santos MD Consulting Physician Cardiology 04/23/18
[2025-03-26 19:22] LABS: Alanine Aminotransferase 30 U/L (6-50); Albumin Level 4.1 g/dL (3.5-5.1); Alkaline Phosphatase 84 U/L (38-126); Anion Gap 10 mmol/L (4-12); Aspartate Amino Transferase 74 U/L (17-59); Bilirubin,Total 0.5 mg/dL (0.2-1.3); Blood Urea Nitrogen 28 mg/dL (9-20); Calcium 9.2 mg/dL (8.4-10.2); Carbon Dioxide 28 mmol/L (22-30); Chloride 96 mmol/L (98-107); Estimated Glomerular Filt Rate 56; Glucose 89 mg/dL (65-110); Potassium 4.8 mmol/L (3.4-5.0); Sodium 134 mmol/L (137-145); Total Protein 7.5 g/dL (6.3-8.2)
[2025-03-26 19:57] LABS: Hemoglobin A1C 6.3 % (<5.7)
== END 2025-03-26 08:23 | disposition home or self-care (01) ==
LOC: ANHGOSHLAB 08:22
PROVIDERS: PCP Internal Medicine; Visit Provider Nurse Practitioner
DX: E11.9 Type 2 diabetes mellitus without complications (principal)
CPT/HCPCS: 36415; 80053; 83036

== ENCOUNTER 2025-04-29 09:58 | Outpatient (CLI) | payer MEDICARE, SELFPAY ==
--- NOTE | ~2025-04-29 | XR_ITS ---
EXAM/ PROCEDURE: XR lumbar spine 2-3V - 04/29/2025 10:04 CDT HISTORY: 74 years old Male with Radiculopathy, lumbar region, pain worsened last 2 weeks COMPARISON: None available TECHNIQUE: Three view(s) FINDINGS/ IMPRESSION: There are no fractures or dislocations.Multilevel degenerative changes are seen. Grade 1 anterolisthesis of L4 over L5, likely degenerative. Atherosclerotic calcifications are seen in the aorta. Reviewed, dictated and finalized at location N.
== END 2025-04-29 09:59 | disposition home or self-care (01) ==
LOC: GOSHIMG 09:58
PROVIDERS: PCP Nurse Practitioner; Visit Provider Nurse Practitioner
DX: M54.16 Radiculopathy, lumbar region (principal); I70.0 Atherosclerosis of aorta
CPT/HCPCS: 72100

== ENCOUNTER 2025-07-09 11:00 | Outpatient (RCR) | payer MEDICARE, SELFPAY ==
--- NOTE | 2025-06-12 11:04 | OPREHPOC ---
Outpatient Therapy Plan of Care This is a Multidisciplinary Plan of Care that may contain components documented by all disciplines (PT, OT, and ST.) PT Problem 1 PT Problem #1 Knowledge Deficit PT Goal 1 Goal / Goal Update 1. Patient to demonstrate independence with HEP for improved self-reliance of symptom management. Target Visit 4 PT Problem 2 PT Problem #2 Pain PT Goal 1 Goal / Goal Update 1. Patient to decrease subjective reports of pain to <3/10 for improved ADL tolerance. 2. Patient to report an improvement in L LE radiating symptoms by 50% to increase ability to perform ADLs. 3. Patient to report 50% improvement in quantity and quality of sleep due to low back pain. Target Visit 8 PT Problem 3 PT Problem #3 Impaired Range of Motion PT Goal 1 Goal / Goal Update 1. Pt to demonstrate an increase o hip ER/IR AROM of WFL to improve function and reduce pain 2. Pt will be able to perform lumbar AROM without increasing pain levels showing improvements toward restored function Target Visit 8
--- NOTE | 2025-06-12 11:05 | PTOPEVAL1 ---
Assessment and note entered by Rah Wakefield PT Evaluation Information Assessment Status Evaluation Diagnosis Lumbar radiculopathy ICD-10 Condition Codes (PT) Pain in low back M54.50,Radiculopathy, lumbar region M54.16 Subjective Information Pt presents with low back pain that radiates into the left hip and down the inner left thigh and into the foot. This has been ongoing 4-5 months. He states transitioning from sitting to standing hurts and the pain increases the longer he stands. Now the pain is effecting his sleep and his ability perform daily activities that involves lifting or carrying. Pt enjoys to work on cars but is now unable to do to back pain. Reported Pain Level Pain Score 3: Self Report Assessment PT Clinical Summary Patient presents to physical therapy with a primary issue of low back pain and radiating L leg numbness for over 3 months. Patient demonstrates high pain, decreased mobility, abnormal posture, gait deficit, and decreased flexibility that limit their ability to perform activities of daily living and functional movements. Patient will benefit from skilled physical therapy to address the above listed deficits and return to prior level of function. Home exercise program instructed and written handout provided, exercises tolerated well with no adverse effects to note post-session. Patient was educated on importance of adherence to home exercise program. Patient was also educated on anatomy, prognosis, home modalities, and plan of care. Plan of Care Interventions Electrical Stimulation,Hot Pack/Cold Pack,Manual Therapy,Neuro Re-education,Therapeutic Activities, Therapeutic Exercise,Ultrasound,Other PT Services Indicated Yes Treatment Frequency and 2x week for 8 vists Duration These treatments will address the objective and functional deficits as defined above. The patient will be advanced safely and appropriately in order for the patient to progress towards his/her prior level of function. Additional exercises will be introduced and as well as a comprehensive home exercise program upon discharge, if needed, ?to ensure carryover of functional gains achieved in the clinic. This treatment plan has been reviewed and agreement upon by the patient.
--- NOTE | 2025-07-09 11:55 | PTOPDC ---
Assessment and note entered by Rah Wakefield, PT Evaluation Information Assessment Status Discharge Diagnosis Lumbar radiculopathy ICD-10 Condition Codes (PT) Pain in low back M54.50,Radiculopathy, lumbar region M54.16 Subjective Information Pt states he continues to severe lower back pain that is worse with transitioning from a sit to a stand and worse with prolonged standing. Pts states he really enjoys to work on cars but this is one of the activities that makes his paint the worst. Pt reports he thinks he feel about the same as when he started therapy. He has continued numbness in L leg, sharp low back pain with muscle spasms on his L side of lower back. He notes he feels weak in the legs after prolonged standing / walking. Reported Pain Level Pain Score 3: Self Report Assessment PT Clinical Summary The patient is being discharged from physical therapy after minimal objective and functional improvement was achieved over the course of treatment. Subjectively, the patient continues to report high pain levels, consistently rating them at 8/10 with activity. Clinical signs and symptoms remain consistent with a left L3-L4 nerve root compression/irritation, presenting as significant paresthesia and weakness in the affected dermatome /myotome. Furthermore, the patient exhibits neurogenic claudication symptoms, particularly with prolonged standing and walking, which severely limits community ambulation and positional tolerance. Given the persistent symptoms and lack of progress, the patient is being referred back to their referring physician for further advanced diagnostic imaging and pain management strategies. Plan of Care PT Services Indicated No
== END 2025-07-10 07:39 | disposition home or self-care (01) ==
LOC: ANHGOSHPT 11:00
PROVIDERS: PCP Nurse Practitioner; Visit Provider Nurse Practitioner
DX: M54.16 Radiculopathy, lumbar region (principal)
CPT/HCPCS: 97014; 97110; 97112; 97140; 97161; 97530; G0283